=== PATIENT | male | born 1960 | race Caucasian/White ===

== ENCOUNTER → 2022-06-14 | Outpatient (CLI) | payer MEDICARE ==
--- NOTE | 2022-06-14 17:49 | CT ---
EXAMINATION TYPE: CT angio chest DATE OF EXAM: 06/14/2022 COMPARISON: 08/09/2014 HISTORY: 62-year-old male I 7 1.9, Thoracic aortic aneurysm. TECHNIQUE: Contiguous axial scanning of the chest performed without and with IV Contrast, patient inj ected with 100ml mL of Isovue 370. Coronal/sagittal MIP reconstructions performed. 3-D reconstruction s generated on a dedicated independent workstation. CT DLP: 339.3 mGycm Automated exposure control for dose reduction was used. FINDINGS: Heart normal size without pericardial effusion. Median sternotomy wires and prosthetic aortic valve a long with postoperative changes. Aortic root aneurysmal 4.5 cm versus 4.1 cm prior to valve replacement. There appears to be surgical material, possible annuloplasty just above the level of the aortic valve . Ascending aorta aneurysmal at 4.3 cm versus 4.2 cm, previously. Mild atherosclerotic arch calcifications with conventional arch vessel branching anatomy. Stable ectasia upper descending thoracic aorta 3.2 cm. Stable mild aneurysm distal descending thoracic aorta at 3.0 cm. Initial noncontrast images show no evidence for acute intramural hematoma. Borderline caliber to the main right and left pulmonary arteries measuring up to 2.6 cm suggesting un derlying pulmonary hypertension. Mildly enlarged 1.5 cm right hilar lymph node. Enlarged 1.3 cm precarinal lymph node. These are new from prior exam. Moderate emphysematous change, more advanced in the upper lungs. Biapical pleural parenchymal scarrin g is present. Mild diffuse bronchial wall thickening. Strandy scarring or atelectasis has developed a t the left lower lobe. Left posterior and lateral rib fracture deformities appear healed and are also new from 2015. No consolidation or pleural effusion. Visualized upper abdomen on lung windows showed no gross adenopathy. Bones: Extensive DISH within the mid and lower thoracic spine. Unchanged bone island within the L1 ve rtebral body. IMPRESSION: 1. COMPARED TO 2014, THERE HAS BEEN INTERVAL AORTIC VALVE REPLACEMENT AND ADDITIONAL SURGERY, POSS IBLE ANNULOPLASTY CHANGE JUST ABOVE THIS LEVEL. 2. AORTIC ROOT ANEURYSMAL AT 4.5 CM VERSUS 4.1 CM PREVIOUSLY. RELATIVELY SIMILAR ASCENDING AORTIC ANE URYSM AT 4.3 CM VERSUS 4.2 CM, PREVIOUSLY. 3. STABLE MILD DIFFUSE ANEURYSM OF THE DESCENDING THORACIC AORTA, DISTALLY MEASURING UP TO 3.0 CM. 4. COPD WITH MODERATE TO ADVANCED EMPHYSEMA AND POSSIBLE UNDERLYING PULMONARY ARTERIAL HYPERTENSION. 5. MILDLY ENLARGED 1.5 CM RIGHT HILAR LYMPH NODE AND 1.3 CM PRECARINAL LYMPH NODE, NEW FROM 2015. THE SE MAY BE REACTIVE/POST INFLAMMATORY. THREE-MONTH FOLLOW-UP CT TO ENSURE STABILITY AND EXCLUDE A NEOP LASTIC ETIOLOGY. 6. INTERVAL DEVELOPMENT OF SCARRING IN THE LEFT LOWER LOBE ALONG WITH HEALED POSTERIOR AND LATERAL LE FT RIB FRACTURE DEFORMITIES. 7. EXTENSIVE DISH MID AND LOWER THORACIC SPINE.
== END | disposition home or self-care (01) ==
LOC: RADCTMAIN 14:24
PROVIDERS: ATTEND Family Medicine
DX: I71.23 Aneurysm of the descending thoracic aorta, without rupture (principal); J43.9 Emphysema, unspecified; M48.14 Ankylosing hyperostosis [Forestier], thoracic region; R59.0 Localized enlarged lymph nodes; Z95.2 Presence of prosthetic heart valve
CPT/HCPCS: 71275; Q9967

== ENCOUNTER → 2022-10-03 | Outpatient (CLI) | payer MEDICARE ==
--- NOTE | 2022-10-03 09:21 | CT ---
EXAMINATION TYPE: CT chest w con DATE OF EXAM: 10/03/2022 COMPARISON: 06/14/2022 HISTORY: Thoracic aortic aneurysm. CT DLP: 330 mGycm, Automated exposure control for dose reduction was used. CONTRAST: Performed injected with 100ml mL of Isovue 300. TECHNIQUE: Axial images were obtained at 5 mm thick sections. Reconstructed images are reviewed on [employer] computer in the coronal plane. FINDINGS: There is subtle hypodensity within the mid right lobe thyroid. Consider ultrasound for rowena tional evaluation. Scarring at the bilateral lung apices appears stable. Emphysematous changes are evident. No suspiciou s infiltrates or masses identified. Minimal pleural thickening along the left posterior lateral pleur al margin. Old rib deformities are evident on the left. There is a 1.5 cm pretracheal lymph node. Stable from comparison. The ascending aorta diameter at the level of the main pulmonary artery is 4.3 cm. Previous measuremen t 4.3 cm. The main pulmonary artery diameter at the bifurcation is 2.1 cm. Aorta at the level of the diaphragm measures 2.6 cm. Transverse aortic arch dimension is 2.6 cm. Aorta at the aortic root is 3. 3 cm. Previous reported measurement 4.[address] sections are obtained through the upper abdomen. Abdomen is essentially unremarkable. IMPRESSIONS: 1. Stable aneurysmal dilatation of the ascending thoracic aorta of 4.3 cm. 2. There may be a subtle hypodensity within the right lobe thyroid. Consider ultrasound for additiona l evaluation. 3. Stable enlarged 1.5 cm pretracheal lymph node. 4. Centimeters changes
== END | disposition home or self-care (01) ==
LOC: RADCTMAIN 07:46
PROVIDERS: ATTEND Family Medicine
DX: I71.21 Aneurysm of the ascending aorta, without rupture (principal); R59.0 Localized enlarged lymph nodes
CPT/HCPCS: 71260; Q9967

== ENCOUNTER → 2022-10-10 | Outpatient (CLI) | payer MEDICARE ==
--- NOTE | 2022-10-10 18:07 | US ---
EXAMINATION TYPE: US thyroid st tissue head/neck DATE OF EXAM: 10/10/2022 COMPARISON: CT Chest 2022 CLINICAL INDICATION: Male, 62 years old with history of E079 THYROID NODULE; Thyroid nodule. GLAND SIZE: Right Lobe: 4.9 x 2.2 x 1.5 cm Overall Parenchyma: heterogenous Left Lobe: 4.2 x 1.3 x 1.6 cm Overall Parenchyma: heterogeneous Isthmus Thickness: 0.22 cm NODULES RIGHT: # of nodules measured on right: 1 1. 1.4 X 0.9 x 1.0 cm, mid mid, solid or almost completely solid, mixed echogenicity TR 4 nodule, w hich is taller than wide, with lobulated or irregular margins, without echogenic foci. Prior size: Hypodensity was seen on CT Chest. No prior ultrasound. LEFT: # of nodules measured on left: 0 ISTHMUS: # of nodules measured in the isthmus: 0 Bilateral neck scanned, borderline to mildly thickened lymph node along the left lateral neck measuri ng 1.6 x 1.1 x 0.9 cm, cortex measures 3.7 mm. IMPRESSION: 1. Solitary 1.4 cm TR 4 nodule in the right lobe. Follow-up can be performed. 2. Incidental borderline enlarged and mildly thickened lymph node along the left lateral neck measuri ng up to 1.1 cm short axis. Correlate for any palpable abnormality that can be followed clinically. C ontrast enhanced CT neck if any suspicious clinical features.
== END | disposition home or self-care (01) ==
LOC: RADUSWWP 12:29
PROVIDERS: ATTEND Family Medicine
DX: E04.1 Nontoxic single thyroid nodule (principal); E07.9 Disorder of thyroid, unspecified
CPT/HCPCS: 76536

== ENCOUNTER 2023-01-14 11:47 | Day surgery (SDC) | payer MEDICARE, BC ==
[2023-01-14 12:40] VITALS: BP 127/73; PULSE 56; RESP 16; TEMP 97.7
--- NOTE | 2023-01-14 13:39 | US ---
ULTRASOUND GUIDED FNA THYROID BIOPSY: CLINICAL HISTORY: Right thyroid nodule FINDINGS: marketing technologist scanned the patient prior to procedure and could not replicate the right thyr oid nodule. Linear areas of decreased echogenicity appear to correspond to vascular structures in the area of hyperemia. Patient was offered a random biopsy of the area of vague echogenicity. Patient wished to defer the pr ocedure. IMPRESSION: 1. Discrete nodule could not be replicated on today's exam. The Patient wishes to defer the procedure . Would recommend 3-6 month follow-up ultrasound to confirm stability.
== END 2023-01-14 13:25 | disposition home or self-care (01) ==
LOC: RADPROMAIN 11:47
PROVIDERS: ATTEND Internal Medicine Endocrinology, Diabetes & Metabolism
DX: Z53.8 Procedure and treatment not carried out for other reasons (principal); E04.1 Nontoxic single thyroid nodule
CPT/HCPCS: 76536

== ENCOUNTER → 2023-12-30 | Outpatient (CLI) | payer MEDICARE, BC ==
--- NOTE | 2023-12-30 20:09 | MR ---
EXAMINATION TYPE: MR lumbar spine wo con DATE OF EXAM: 12/30/2023 6:53 PM CLINICAL INDICATION:Male, 63 years old with history of M54.50 LOW BACK PAIN, UNSPECIFIED; PHH, Low ba ck pain, left foot numbness COMPARISON: None TECHNIQUE: Multi planar, multi sequence imaging was performed utilizing: T1-weighted, T2-weighted, a nd turbo inversion recovery imaging of the lumbar spine. IV Contrast: cc . (None if empty) FINDINGS: Alignment: The lumbar vertebral bodies have preserved heights with grade 1 anterolisthesis of L4 on L 5. Cord: The conus medullaris and the distal spinal cord appear unremarkable with regards to their signa l intensity and morphology. Bones/Discs: Multilevel disc degeneration changes with osteophyte formation, disc space narrowing, an d facet joint arthropathy. Intervertebral disc signal is maintained. No abnormal inversion recovery signal to suggest bony edema. T12-L1: No evidence of significant spinal canal stenosis or neural foraminal stenosis. L1-L2: No disc pathology. Facet joint arthropathy without significant spinal canal stenosis and mild bilateral neural foraminal stenosis. L2-L3: Disc bulge and facet joint arthropathy result in mild spinal canal and moderate and moderate t o severe left neural foraminal stenosis. L3-L4: Disc bulge and facet joint arthropathy result in mild spinal canal and moderate bilateral neur al foraminal stenosis. L4-L5: Disc uncovering from grade 1 anterolisthesis and facet joint arthropathy with mild spinal silviano l stenosis and severe right and moderate to severe left neural foraminal stenosis. L5-S1: The disc has a rounded posterior morphology without significant spinal canal stenosis. Facet j oint arthropathy with moderate bilateral neural foraminal stenosis. No significant spinal canal or neural foraminal stenosis in the remainder of the visualized levels. Other findings: None. IMPRESSION: 1. No definitive evidence of disc herniation or significant spinal canal stenosis. 2. Multilevel disc degeneration with associated osteoarthritic changes. No foraminal stenosis at L4- L5 with severe right and moderate to severe left L2-L3 and moderate severe left L4-L5. 3. Grade 1 anterolisthesis of L4 and L5.
== END | disposition home or self-care (01) ==
LOC: RADMRIMAIN 18:13
PROVIDERS: ATTEND Family Medicine
DX: M43.16 Spondylolisthesis, lumbar region (principal); M51.36 Other intervertebral disc degeneration, lumbar region; R20.0 Anesthesia of skin
CPT/HCPCS: 72148

== ENCOUNTER 2024-03-30 14:18 | Inpatient (IN) | payer MEDICARE, BC ==
[2024-03-30] MEDS ORDERED: VANCOMYCIN IV PER PHARMACY 1 EACH MISC MISCELLANE PRN (15:40)
[2024-03-30] MEDS: SODIUM CHLORIDE 0.9% 500 ML 500 ML IV SCH (16:05)
--- NOTE | 2024-03-30 16:05 | ED ---
General Adult HPI - General Chief complaint: Extremity Problem,Nontraumatic Stated complaint: L leg swelling Time Seen by Provider: 03/30/24 15:30 Source: patient, RN notes reviewed, old records reviewed Mode of arrival: ambulatory Limitations: no limitations - History of Present Illness Initial comments: This is a 64-year-old male who presents to the emergency department stating he had an infected left leg for about 2 weeks. Patient states he went to [facility] and he was admitted for 1 week and sent home on antibiotics for a week. Patient states the area is getting more red more swollen and more tender. Patient was on clindamycin and doxycycline. Patient denies fever or chills. Patient states the redness is expanding and the area is becoming more swollen. Patient denies any other symptoms at this time. - Related Data Home Medications Medication Instructions Recorded Confirmed Citalopram Hydrobromide [CeleXA] 20 mg PO DAILY 11/01/13 01/14/23 Lisinopril-Hctz 20-25 mg 1 tab PO DAILY 11/01/13 01/14/23 [Zestoretic 20-25] Aspirin EC [Ecotrin Low Dose] 81 mg PO DAILY 01/03/23 01/14/23 Buprenorphine HCl/Naloxone HCl 1 each SL BID 01/03/23 01/14/23 [Suboxone 4 mg-1 mg Sl Film] Diclofenac Sodium [Voltaren] 75 mg PO DAILY 01/03/23 01/14/23 Gabapentin 800 mg PO DAILY 01/03/23 01/14/23 Gabapentin [Neurontin] 400 mg PO DAILY 01/03/23 01/14/23 Metoprolol Tartrate [Lopressor] 50 mg PO BID 01/03/23 01/14/23 Rosuvastatin [Crestor] 20 mg PO DAILY 01/03/23 01/14/23 amLODIPine [Norvasc] 5 mg PO DAILY 01/03/23 01/14/23 buPROPion HCL [buPROPion HCL SR] 150 mg PO Q12HR 01/03/23 01/14/23 Allergies Allergy/AdvReac Type Severity Reaction Status Date / Time No Known Allergies Allergy Verified 03/30/24 14:26 Review of Systems ROS Statement: Those systems with pertinent positive or pertinent negative responses have been documented in the HPI. ROS Other: All systems not noted in ROS Statement are negative. Past Medical History Past Medical History: Hypertension Additional Past Medical History / Comment(s): GLASSES. ANDREAFSKI RT EAR. AORTIC ANEURYSM. HEART MURMUR SINCE . ARTHRITIS. BACK PAIN. RT ING. PAIN. History of Any Multi-Drug Resistant Organisms: None Reported Past Surgical History: Coronary Bypass/CABG, Hernia Repair, Orthopedic Surgery Additional Past Surgical History / Comment(s): LT ING. HERNIA REPAIR. 2010,2011,2013 HAD RT. ING HERNIA REPAIRS FROM A WORK RELATEED INJURY, PER PT AND/WORKMANS COMP. REP. ON INITIAL CONSULT FOR PAIN CLINIC 11/01/13. RT. SHOULDER ARTHRO. LT AND RT. KNEE ARTHRO. Past Psychological History: Depression Past Alcohol Use History: None Reported General Exam - General Exam Comments Initial Comments: GENERAL: Patient is well-developed and well-nourished. Patient is nontoxic and well- hydrated and is in mild distress. ENT: Neck is soft and supple. No significant lymphadenopathy is noted. Oropharynx is clear. Moist mucous membranes. Neck has full range of motion without eliciting any pain. EYES: The sclera were anicteric and conjunctiva were pink and moist. Extraocular movements were intact and pupils were equal round and reactive to light. E yelids were unremarkable. PULMONARY: Unlabored respirations. Good breath sounds bilaterally. No audible rales rhonchi or wheezing was noted. CARDIOVASCULAR: There is a regular rate and rhythm without any murmurs gallops or rubs. ABDOMEN: Soft and nontender with normal bowel sounds. SKIN: Skin is clear with no lesions or rashes and otherwise unremarkable. NEUROLOGIC: Patient is alert and oriented x3. Cranial nerves II through XII are grossly intact. Motor and sensory are also intact. Normal speech, volume and content. Symmetrical smile. MUSCULOSKELETAL: Normal extremities with adequate strength and full range of motion. Patient's left anterior rasheed is red warm and extremely tender there is an area of swollen this on the anterior surface. The erythema does reach around posteriorly as well. LYMPHATICS: No significant lymphadenopathy is noted PSYCHIATRIC: Normal psychiatric evaluation. Limitations: no limitations Course Vital Signs 03/30/24 03/30/24 03/30/24 14:22 15:25 16:41 Temperature 97.7 F Pulse Rate 67 67 62 Respiratory 20 16 16 Rate Blood Pressure 113/74 123/79 146/88 O2 Sat by Pulse 97 97 99 Oximetry Medical Decision Making - Medical Decision Making EKG is interpreted by myself read EKG shows a sinus rhythm at 63 bpm VA interval 197 QRS 152 QT interval is 470 QTc is 477. Patient's EKG shows no ST segment elevation Was pt. sent in by a medical professional or institution (CLIFTON Coker, PUBLIC SERVICES LIBRARIAN, urgent care, hospital, or penitentiary...) When possible be specific @ -No Did you speak to anyone other than the patient for history (EMS, parent, family, police, friend...)? What history was obtained from this source @ -No Did you review nursing and triage notes (agree or disagree)? Why? @ -I reviewed and agree with nursing and triage notes Were old charts reviewed (outside hosp., previous admission, EMS record, old EKG, old radiological studies, urgent care reports/EKG's, penitentiary records)? Report findings @ -No old charts were reviewed Differential Diagnosis? @ -Cellulitis, osteomyelitis, abscess, DVT, this is not an all-inclusive list EKG interpreted by me (3pts min.). @ -As above X-rays interpreted by me (1pt min.). @ -X-ray of the tib-fib shows no acute CT interpreted by me (1pt min.). @ -None done U/S interpreted by me (1pt. min.). @ -None done What testing was considered but not performed or refused? (CT, X-rays, U/S, labs)? Why? @ -None What meds were considered but not given or refused? Why? @ -None Did you discuss the management of the patient with other professionals (professionals i.e. CLIFTON Coker, PUBLIC SERVICES LIBRARIAN, lab, RT, psych nurse, social insurance adviser, package yarns drying machine operator, teacher, job placement officer, transplant case manager)? Give summary @ -I spoke with Dr. Arriola he agreed to admit the patient admit the patient f or the emergency Was smoking cessation discussed for >3mins.? @ -No Was critical care preformed (if so, how long)? @ -No Were there social determinants of health that impacted care today? How? (Homele ssness, low income, unemployed, alcoholism, drug addiction, transportation, low edu. Level, literacy, decrease access to med. care, correction, rehab)? @ -No Was there de-escalation of care discussed even if they declined (Discuss DNR or withdrawal of care, Hospice)? DNR status @ -No What co-morbidities impacted this encounter? (DM, HTN, Smoking, COPD, CAD, Cancer, CVA, ARF, Chemo, Hep., AIDS, mental health diagnosis, sleep apnea, morbid obesity)? @ -None Was patient admitted / discharged? Hospital course, mention meds given and route, prescriptions, significant lab abnormalities, going to OR and other pertinent info. @ -Patient was started on vancomycin and Unasyn. I spoke with Dr. Arriola he a greed to admit the patient admit the patient and I consulted infectious disease Undiagnosed new problem with uncertain prognosis? @ -No Drug Therapy requiring intensive monitoring for toxicity (Heparin, Nitro, Insulin, Cardizem)? @ -No Were any procedures done? @ -No Diagnosis/symptom? @ -Cellulitis left leg Acute, or Chronic, or Acute on Chronic? @ -Acute Uncomplicated (without systemic symptoms) or Complicated (systemic symptoms)? @ -Complicated Side effects of treatment? @ -No Exacerbation, Progression, or Severe Exacerbation? @ -No Poses a threat to life or bodily function? How? (Chest pain, [place], [place], pneumonia, PE, COPD, DKA, ARF, appy, cholecystitis, CVA, Diverticulitis, Homicidal, Barbara cidal, threat to staff... and all critical care pts) @ -Yes this could lead to sepsis and endorgan dysfunction - Lab Data Result diagrams: 03/30/24 15:45 03/30/24 15:45 Lab Results 03/30/24 03/30/24 03/30/24 Range/Units 15:45 15:45 15:45 WBC 8.0 (3.8-10.6) k/uL RBC 3.98 L (4.30-5.90) m/uL Hgb 12.0 L (13.0-17.5) gm/dL Hct 38.3 L (39.0-53.0) % MCV 96.4 (80.0-100.0) fL MCH 30.1 (25.0-35.0) pg MCHC 31.2 (31.0-37.0) g/dL RDW 13.5 (11.5-15.5) % Plt Count 417 (150-450) k/uL MPV 7.4 Neutrophils % 69 % Lymphocytes % 19 % Monocytes % 7 % Eosinophils % 1 % Basophils % 1 % Neutrophils # 5.5 (1.3-7.7) k/uL Lymphocytes # 1.5 (1.0-4.8) k/uL Monocytes # 0.6 (0-1.0) k/uL Eosinophils # 0.1 (0-0.7) k/uL Basophils # 0.1 (0-0.2) k/uL Hypochromasia Slight Sodium 138 (137-145) mmol/L Potassium 4.4 (3.5-5.1) mmol/L Chloride 105 (98-107) mmol/L Carbon Dioxide 29 (22-30) mmol/L Anion Gap 4 mmol/L BUN 19 (9-20) mg/dL Creatinine 0.61 L (0.66-1.25) mg/dL Est GFR (CKD-EPI)AfAm >90 (>60 ml/min/1.73 sqM) Est GFR (CKD-EPI)NonAf >90 (>60 ml/min/1.73 sqM) Glucose 85 (74-99) mg/dL Plasma Lactic Acid Simeon 0.9 (0.7-2.0) mmol/L Calcium 8.8 (8.4-10.2) mg/dL Total Bilirubin 0.7 (0.2-1.3) mg/dL AST 40 (17-59) U/L ALT 28 (4-49) U/L Alkaline Phosphatase 72 (38-126) U/L Total Protein 6.8 (6.3-8.2) g/dL Albumin 3.6 (3.5-5.0) g/dL Disposition Clinical Impression: Left leg cellulitis Disposition: ADMITTED IP TO THIS HOSP Referrals: Leroy Barboza DO [Primary Care Provider] - 1-2 days Time of Disposition: 17:14
[2024-03-30] MEDS: AMPICILLIN-SULBACTAM 3 GM in SODIUM CHLORIDE 0.9% 100 ML IVPB STA (16:13)
[2024-03-30 16:15] LABS: ALT 28 U/L (4-49); AST 40 U/L (17-59); African American GFR (CKD) >90 (>60 ml/min/1.73 sqM); Albumin 3.6 g/dL (3.5-5.0); Alkaline Phosphatase 72 U/L (38-126); Anion Gap 4 mmol/L; Blood Urea Nitrogen 19 mg/dL (9-20); Calcium 8.8 mg/dL (8.4-10.2); Carbon Dioxide 29 mmol/L (22-30); Chloride 105 mmol/L (98-107); Glucose 85 mg/dL (74-99); Non-African American GFR(CKD) >90 (>60 ml/min/1.73 sqM); Potassium 4.4 mmol/L (3.5-5.1); Sodium 138 mmol/L (137-145); Total Bilirubin 0.7 mg/dL (0.2-1.3); Total Protein 6.8 g/dL (6.3-8.2)
[2024-03-30 16:18] LABS: Basophils # (A) 0.1 k/uL (0-0.2); Basophils % (A) 1 %; Eosinophils # (A) 0.1 k/uL (0-0.7); Eosinophils % (A) 1 %; HCT 38.3 % (39.0-53.0); Hypochromasia Slight; Lymphocytes # (A) 1.5 k/uL (1.0-4.8); Lymphocytes % (A) 19 %; MCH 30.1 pg (25.0-35.0); MCHC 31.2 g/dL (31.0-37.0); MCV 96.4 fL (80.0-100.0); Mean Platelet Volume 7.4; Monocytes # (A) 0.6 k/uL (0-1.0); Monocytes % (A) 7 %; Neutrophils # (A) 5.5 k/uL (1.3-7.7); Neutrophils % (A) 69 %; Platelet Count 417 k/uL (150-450); RBC 3.98 m/uL (4.30-5.90); RDW 13.5 % (11.5-15.5)
--- NOTE | 2024-03-30 16:34 | XR ---
EXAMINATION TYPE: XR tibia fibula LT DATE OF EXAM: 03/30/2024 4:26 PM CLINICAL INDICATION: Male, 64 years old with history of Cellulitis; COMPARISON: None TECHNIQUE: XR tibia fibula LT; examined in AP and lateral projections. FINDINGS: Soft tissue swelling without evidence of osseous erosion. No evidence of any acute osseous pathology, joint dislocation, or soft tissue swelling is noted. Surgical clips in the distal medial l eg. IMPRESSION: 1. No evidence of acute fracture. 2. Mild soft tissue edema throughout the leg without evidence of osseous erosion. [facility], , 03/30/2024 4:32 PM
[2024-03-30] MEDS: VANCOMYCIN 1,000 MG in SODIUM CHLORIDE 0.9% 250 ML IVPB ONE (18:18)
[2024-03-30] MEDS: AMPICILLIN-SULBACTAM 3 GM in SODIUM CHLORIDE 0.9% 100 ML IVPB SCH (23:10)
[2024-03-30] MEDS: GABAPENTIN 300 MG CAP PO SCH (23:17)
[2024-03-30] MEDS: lisinopriL 20 MG TAB PO SCH (23:17)
[2024-03-30] MEDS: NICOTINE 14MG/24HR PATCH TRANSDERM SCH (23:17)
[2024-03-30] MEDS: buPROPion SR 150 MG TABLET.ER PO SCH (23:20)
[2024-03-31] MEDS: NON FORMULARY DRUG PO SCH (01:09)
[2024-03-31] MEDS: NON FORMULARY DRUG (Buprenorphine Hcl/Naloxone Hcl [Suboxone 4 Mg-1 Mg Sl Film] 1 EACH Fil SUBLINGUAL SCH (01:17)
[2024-03-31 05:47] LABS: African American GFR (CKD) >90 (>60 ml/min/1.73 sqM); Non-African American GFR(CKD) >90 (>60 ml/min/1.73 sqM)
[2024-03-31] MEDS: VANCOMYCIN 1,000 MG in SODIUM CHLORIDE 0.9% 250 ML IVPB SCH (06:12)
[2024-03-31] MEDS: ETODOLAC 400 MG TAB PO SCH (08:57)
[2024-03-31] MEDS: ATORVASTATIN 80 MG TAB PO SCH (09:00)
[2024-03-31] MEDS: PANTOPRAZOLE 40 MG TABLET PO SCH (09:00)
[2024-03-31] MEDS: CITALOPRAM HYDROBROMIDE 20 MG TAB PO SCH (09:00)
[2024-03-31] MEDS: ASPIRIN 81 MG PO SCH (09:00)
[2024-03-31] MEDS: MULTIVITAMINS, THERA 1 EACH TAB PO SCH (09:00)
[2024-03-31 10:22] VITALS: BMI 16.0
--- NOTE | 2024-03-31 13:57 | CT ---
EXAMINATION TYPE: CT lower leg LT w con CT DLP: 1406.8 mGycm, Automated exposure control for dose reduction was used. DATE OF EXAM: 03/31/2024 1:50 PM COMPARISON: Left tibia/fibular radiograph 03/30/2024 CLINICAL INDICATION:Male, 64 years old with history of abscess; PHH, left lower leg cellulitis TECHNIQUE: Axial images were obtained of the left lower extremity after the uneventful administration of 100 cc of Isovue 300 intravenously. Additional coronal and sagittal reformatted images and soft t issue and bone window were obtained for review. 3-D reconstruction was created on a separate workstat ion. FINDINGS: There is no evidence of fracture, subluxation, or dislocation. No osseous erosion. Edema wi th organized thin-walled rim-enhancing fluid collection within the anterior rasheed soft tissues in the mid tibial region measuring 4.2 x 0.9 x 7.4 cm in TV, AP, CC dimensions (series 4, image 104 and seri es 9, image 12). This is superficial to the muscle. No joint effusion. No evidence of vascular occlus ion. Atherosclerotic calcification of the anterior tibial artery proximally. No soft tissue gas ident ified. Medial right distal tibial soft tissue small calcifications. IMPRESSION: 1. No acute fracture or dislocation. 2. Anterior mid rasheed 7.4 cm organized fluid collection concerning for abscess. No internal gas or valadez rrounding osseous erosion. [facility], , 03/31/2024 1:54 PM
--- NOTE | 2024-03-31 22:49 | HP ---
HISTORY AND PHYSICAL HISTORY OF PRESENT ILLNESS: A 64-year-old patient came in with infected leg for about 2 weeks duration. He was at [facility], was admitted for 1 week, sent home on antibiotics. He possibly had some trauma to this, though he is not sure. This is the 3rd time it has happened in the last 3 or 4 years. His leg is swollen and red. He is admitted for IV antibiotics. HOME MEDICATIONS: 1. Celexa 20 daily. 2. Lisinopril. 3. Zestoretic 20/25 daily. 4. Aspirin daily. 5. Suboxone daily. 6. Voltaren 75 daily. 7. Gabapentin daily. 8. Metoprolol 50 b.i.d. 9. Crestor 20 mg daily. 10.Norvasc 5 mg daily. 11.Wellbutrin 150 b.i.d. ALLERGIES: Negative. REVIEW OF SYSTEMS: A 14-point review of systems otherwise negative. PAST MEDICAL HISTORY: Hypertension, aortic aneurysm, heart murmur since , back pain, and right inguinal pain. PAST SURGICAL HISTORY: Hernia repair, bypass surgery, orthopedic surgeries. PHYSICAL EXAMINATION: GENERAL: He is thin, cachectic. LUNGS: Scattered wheeze x4. HEART: Pupils equal, round, reactive. CARDIOVASCULAR: Regular rate and rhythm. ABDOMEN: Soft, nontender. SKIN: Warm and dry. NEUROLOGIC: Cranial nerves are intact. PSYCH: Fair mood and affect. LABORATORY DATA: Hemoglobin is 12. ASSESSMENT: Left leg cellulitis, started on IV antibiotics. Prognosis guarded. Follow up in the next 24 to 48 hours. Infect[address] Disease involved. CT scan of the leg showed purulent abscess. Prognosis guarded. MMODL / IJN: [id number] /
[2024-04-01 08:40] LABS: Basophils # (A) 0.09 X 10*3/uL (0.00-0.10); Basophils % (A) 1.3 %; Eosinophils % (A) 2.8 %; HCT 33.4 % (39.6-50.0); HGB 10.9 g/dL (13.0-17.0); Lymphocytes # (A) 1.96 X 10*3/uL (0.90-5.00); Lymphocytes % (A) 27.3 %; MCH 31.1 pg (27.0-32.0); MCHC 32.6 g/dL (32.0-37.0); MCV 95.4 FL (80.0-97.0); Mean Platelet Volume 10.1 FL (9.5-12.2); Monocytes # (A) 0.79 X 10*3/uL (0.20-1.00); NRBC Per 100 WBC 0 X 10*3/uL (0.00-0.01); Neutrophils # (A) 4.11 X 10*3/uL (1.80-7.70); Neutrophils % (A) 57.2 %; Platelet Count 395 X 10*3/uL (140-440); RDW 13.9 % (11.5-14.5); WBC 7.18 X 10*3/uL (4.50-10.00)
[2024-04-01 08:42] LABS: ALT 20 U/L (10-49); AST 24 U/L (14-35); Albumin 3.3 g/dL (3.8-4.9); Albumin/Globulin Ratio 1.27 Ratio (1.60-3.17); Alkaline Phosphatase 73 U/L (41-126); BUN/Creat Ratio 24.83 Ratio (12.00-20.00); Blood Urea Nitrogen 14.9 mg/dL (9.0-27.0); Calcium 8.8 mg/dL (8.7-10.3); Carbon Dioxide 28.3 mmol/L (21.6-31.8); Chloride 103 mmol/L (96-109); Globulin 2.6 g/dL (1.6-3.3); Glucose 89 mg/dL (70-110); Potassium 4.1 mmol/L (3.5-5.5); Sodium 141 mmol/L (135-145); Total Bilirubin 0.4 mg/dL (0.3-1.2); Total Protein 5.9 g/dL (6.2-8.2)
--- NOTE | 2024-04-01 08:57 | P.CONS ---
History of Present Illness - Reason for Consult Consult date: 03/31/24 Left leg cellulitis Requesting physician: Mau Lima - Chief Complaint Left leg pain and swelling x 2 weeks - History of Present Illness Patient is a 64-year-old male with a past medical history significant for hypertension aortic aneurysm hard of hearing patient presenting to the hospital for evaluation of left lower extremity pain swelling and redness that has been going on for 2 weeks patient mention has been evaluated and treated at the [facility] and was admitted for about a week to and sent home on some oral antibiotic however the patient noticed to have increasing swelling redness to the left lower extremity patient has been complaining of pain to the left leg especially when it is touched moderate intensity without any radiation with associated swelling redness but did not have any drainage patient did have some similar denies high-grade fever no fever has been recorded on presentation to hospital patient was not tachycardic hypotensive or hypoxic he did have white count of 8.0 creatinine has been normal electrolytes are normal patient was started on vancomycin and Weirtonsyn infectious disease was consulted for further management of antibiotic therapy patient did have x-ray of the tibia and fibula did not show any bony changes mild soft tissue edema throughout the leg Review of Systems Positive point and negatives has been mentioned in the HPI, complete review of systems was performed and all other systems are negative Past Medical History Past Medical History: Hypertension Additional Past Medical History / Comment(s): GLASSES. [place] RT EAR. AORTIC ANEURYSM. HEART MURMUR SINCE . ARTHRITIS. BACK PAIN. bilateral inguinal her yuliya with pain History of Any Multi-Drug Resistant Organisms: None Reported Past Surgical History: Coronary Bypass/CABG, Hernia Repair, Orthopedic Surgery Additional Past Surgical History / Comment(s): INFANT LT ING. HERNIA REPAIR. 2010,2011,2013 HAD RT. ING HERNIA REPAIRS FROM A WORK RELATED INJURY, PER PT AND/WORKMANS COMP. REP. ON INITIAL CONSULT FOR PAIN CLINIC 11/01/13. RT. SHOULDER ARTHRO. LT AND RT. KNEE ARTHRO. Past Psychological History: Depression Smoking Status: Current every day smoker, Light tobacco smoker Past Alcohol Use History: None Reported, Abuse Additional Past Alcohol Use History / Comment(s): Stopped drinking 30 years ago Past Drug Use History: Opiates Additional Drug Use History / Comment(s): PT REPORTS PAST SUBSTANCE ABUSE, MULT MEDS. Medications and Allergies Home Medications Medication Instructions Recorded Confirmed Type Aspirin EC [Ecotrin Low Dose] 81 mg PO DAILY 01/03/23 03/30/24 History Buprenorphine HCl/Naloxone HCl 0.5 film SUBLINGUAL BID 01/03/23 03/30/24 History [Suboxone 4 mg-1 mg Sl Film] Diclofenac Sodium [Voltaren] 75 mg PO BID 01/03/23 03/30/24 History buPROPion HCL [buPROPion HCL SR] 150 mg PO BID 01/03/23 03/30/24 History Citalopram Hydrobromide [CeleXA] 40 mg PO DAILY 03/30/24 03/30/24 History Gabapentin [Neurontin] 300 mg PO TID 03/30/24 03/30/24 History Multivitamin 50+ 1 tab PO DAILY 03/30/24 03/30/24 History Omeprazole [PriLOSEC] 20 mg PO DAILY 03/30/24 03/30/24 History Rosuvastatin Calcium [Crestor] 40 mg PO DAILY 03/30/24 03/30/24 History clindamycin HCL 300 mg PO TID 03/30/24 03/30/24 History lisinopriL [Prinivil] 20 mg PO DAILY 03/30/24 03/30/24 History Allergies Allergy/AdvReac Type Severity Reaction Status Date / Time No Known Allergies Allergy Verified 03/30/24 17:19 Physical Exam Vitals: Vital Signs Temp Pulse Pulse Resp BP BP Pulse Ox 03/31/24 07:11 98.2 F 64 16 159/85 98 03/31/24 01:58 98.4 F 65 16 151/89 95 03/30/24 21:30 65 16 03/30/24 20:25 98.3 F 64 16 180/92 96 03/30/24 20:00 65 17 165/98 96 03/30/24 16:41 62 16 146/88 99 03/30/24 15:25 67 16 123/79 97 03/30/24 14:22 97.7 F 67 20 113/74 97 Intake and Output 03/30/24 03/31/24 03/31/24 22:59 06:59 14:59 Other: Voiding Method Toilet Urinal # Voids 3 Weight 53.524 kg 53.524 kg GENERAL DESCRIPTION: Elderly male lying in bed, no distress. No tachypnea or accessory muscle of respiration use. HEENT: Shows Pallor , no scleral icterus. Oral mucous membrane is dry. No pharyngeal erythema or thrush NECK: Trachea central, no thyromegaly. LUNGS: Unlabored breathing. Clear to auscultation anteriorly. No wheeze or crackle. HEART: S1, S2, regular rate and rhythm. No loud murmur ABDOMEN: Soft, no tenderness , guarding or rigidity, no organomegaly EXTREMITIES: Left leg did have 2 areas of diffuse swelling with some fluctuation especially to the proximal area which is warm and red and tender to touch SKIN: No rash, no masses palpable. NEUROLOGICAL: The patient is awake, alert, oriented x3, mood and affect normal. Results CBC & Chem 7: 04/01/24 05:48 04/01/24 05:48 Labs: Abnormal Lab Results - Last 24 Hours (Table) 03/30/24 03/30/24 03/31/24 Range/Units 15:45 15:45 04:47 RBC 3.98 L (4.30-5.90) m/uL Hgb 12.0 L (13.0-17.5) gm/dL Hct 38.3 L (39.0-53.0) % Creatinine 0.61 L 0.56 L (0.66-1.25) mg/dL Assessment and Plan (1) Abscess of left leg Current Visit: Yes Status: Acute Code(s): L02.416 - CUTANEOUS ABSCESS OF LEFT LOWER LIMB SNOMED Code(s): 579674561 (2) Failure of outpatient treatment Current Visit: Yes Status: Acute Code(s): Z78.9 - OTHER SPECIFIED HEALTH STATUS SNOMED Code(s): 847064762 (3) Left leg cellulitis Current Visit: Yes Status: Acute Code(s): L03.116 - CELLULITIS OF LEFT LOWER LIMB SNOMED Code(s): 56081233585908341 Plan: 1patient presented to hospital with left lower extremity pain swelling redness that has been going on for 2 weeks failing outpatient treatment he did have an area of fluctuation possibly concerning for an abscess and likely related to MRSA gram-negative infection less likely but not entirely excluded 2-await CT of the left leg that has been ordered by admitting team if evidence of fluid collection surgery should be consulted for drainage of the abscess and deep culture 3-vancomycin pharmacy to dose target trough of 15 while watching kidney func tion and Vanco trough closely We will follow on clinical condition and cultures to further adjust medication if needed Thank you for this consultation we will follow the patient along with you Dictation was produced using [employer] dictation software. please excuse any grammatical, word or spelling errors. Time with Patient: Greater than 30
--- NOTE | 2024-04-01 10:23 | P.GSCN ---
History of Present Illness Consult date: 04/01/24 Reason for Consult: Lower extremity abscess, I&D Requesting physician: Corby Gonzalez History of present illness: This a pleasant 64-year-old male patient with history of memory impairment, coronary artery disease status post aortic valve replacement, 2 coronary artery bypass graft, every day smoker, and hypertension who presented to the emergency department with concerns of left lower extremity redness and swelling. Apparently patient had been recently admitted to [facility] for about 1 weeks duration on antibiotics for left lower extremity infection. He was discharged on oral antibiotics. He followed up with his PCP who was concerned still for infection and came into the emergency department for further evaluation. He was seen by infectious disease's, started on IV antibiotics. No leukocytosis. He has been afebrile. He had a CT of the left lower extremity that reported anterior mid rasheed 7.4 cm organized fluid collection concerning for abscess. Vascular surgery was consulted for I&D with deep tissue cultures. Denies any shortness of breath, chest pain, abdominal pain, nausea or vomiting. No diarrhea, fevers chills or bodyaches. He does report left lower extremity pain, states that pain is worse today but he does report swelling and redness is much improved since his first hospitalization. He denies any known injury to the lower extremity. Review of Systems A 14 point review systems was completed all pertinent positives and negatives as stated in the HPI. Past Medical History Past Medical History: Hypertension Additional Past Medical History / Comment(s): GLASSES. [place] RT EAR. AORTIC ANEURYSM. HEART MURMUR SINCE . ARTHRITIS. BACK PAIN. bilateral inguinal hernia with pain History of Any Multi-Drug Resistant Organisms: None Reported Past Surgical History: Coronary Bypass/CABG, Hernia Repair, Orthopedic Surgery Additional Past Surgical History / Comment(s): INFANT LT ING. HERNIA REPAIR. 2010,2011,2013 HAD RT. ING HERNIA REPAIRS FROM A WORK RELATED INJURY, PER PT AND/WORKMANS COMP. REP. ON INITIAL CONSULT FOR PAIN CLINIC 11/01/13. RT. SHOULDER ARTHRO. LT AND RT. KNEE ARTHRO. Past Psychological History: Depression Smoking Status: Current every day smoker, Light tobacco smoker Past Alcohol Use History: None Reported, Abuse Additional Past Alcohol Use History / Comment(s): Stopped drinking 30 years ago Past Drug Use History: Opiates Additional Drug Use History / Comment(s): PT REPORTS PAST SUBSTANCE ABUSE, MULT MEDS. Medications and Allergies Home Medications Medication Instructions Recorded Confirmed Type Aspirin EC [Ecotrin Low Dose] 81 mg PO DAILY 01/03/23 03/30/24 History Buprenorphine HCl/Naloxone HCl 0.5 film SUBLINGUAL BID 01/03/23 03/30/24 History [Suboxone 4 mg-1 mg Sl Film] Diclofenac Sodium [Voltaren] 75 mg PO BID 01/03/23 03/30/24 History buPROPion HCL [buPROPion HCL SR] 150 mg PO BID 01/03/23 03/30/24 History Citalopram Hydrobromide [CeleXA] 40 mg PO DAILY 03/30/24 03/30/24 History Gabapentin [Neurontin] 300 mg PO TID 03/30/24 03/30/24 History Multivitamin 50+ 1 tab PO DAILY 03/30/24 03/30/24 History Omeprazole [PriLOSEC] 20 mg PO DAILY 03/30/24 03/30/24 History Rosuvastatin Calcium [Crestor] 40 mg PO DAILY 03/30/24 03/30/24 History clindamycin HCL 300 mg PO TID 03/30/24 03/30/24 History lisinopriL [Prinivil] 20 mg PO DAILY 03/30/24 03/30/24 History Allergies Allergy/AdvReac Type Severity Reaction Status Date / Time No Known Allergies Allergy Verified 03/30/24 17:19 Surgical - Exam Vital Signs Temp Pulse Resp BP Pulse Ox 97.7 F 67 20 113/74 97 03/30/24 14:22 03/30/24 14:22 03/30/24 14:22 03/30/24 14:22 03/30/24 14:22 General appearance: The patient is alert, oriented, appears in no acute distress. HET: Head is normocephalic and atraumatic. Pupils are equal and reactive. Neck: Supple. Heart: Regular. Lungs: Equal expansion, normal respiratory effort. Abdomen: Soft, nontender, nondistended. Extremities: palpable DP pulses bilaterally. Left lower extremity with erythema along rasheed with fluctuance along the lateral aspect as well as small area of fluctuance medial aspect above the ankle. Neurological: No focal deficits. Alert and oriented x 3. Results - Labs 04/01/24 05:48 04/01/24 05:48 Microbiology - Last 24 Hours (Table) 03/30/24 15:45 Blood Culture - Preliminary Blood - Imaging Comments: Left lower extremity CT scan with contrast reports no acute fracture or dislo cation. Anterior mid rasheed 7.4 cm organized fluid collection concerning for abscess. No internal gas or surrounding osseous erosion. Assessment and Plan Assessment: 1. Left lower extremity abscess 2. Cellulitis 3. History of coronary artery disease status post heart valve replacement and CABG 4. Nicotine dependence 5. Hypertension Plan: 1. Keep n.p.o. 2. Antibiotics per recommendations from infectious disease 3. Patient scheduled for left lower extremity incision and drainage with deep tissue cultures Thank you for this consultation, we will continue to follow. The impression and plan of care has been dictated as directed. I performed a history and examination of this patient, discussed the same with the dictator. I agree with the dictator's note ,documented as a scribe. Any additional findings or plans will be noted.
[2024-04-01] MEDS: IV FLUID CONTINUATION 1,000 ML IV ONE (13:11)
[2024-04-01] MEDS: ONDANSETRON 4 MG/2 ML VIAL IVP STA (13:23)
[2024-04-01] MEDS ORDERED: PHENYLEPHRINE 10 MG/ML VIAL ONE (14:01)
[2024-04-01] MEDS ORDERED: fentaNYL (PF) 50 MCG/ML 2 ML AMP ONE (14:01)
[2024-04-01] MEDS ORDERED: LIDOCAINE 1% INJ 10MG/ML (20 ML MDV) ONE (14:01)
[2024-04-01] MEDS ORDERED: PROPOFOL 10 MG/ML 20 ML VIAL IV ONE (14:01)
[2024-04-01] MEDS ORDERED: TRIMETHOBENZAMIDE 100 MG/ML 2 ML VIAL IM ONE (14:01)
[2024-04-01] MEDS ORDERED: LIDOCAINE 4% LTA KIT (4 ML) TOPICAL ONE (14:01)
--- NOTE | 2024-04-01 14:40 | P.OP ---
Date of Procedure: 04/01/24 Preoperative Diagnosis: Localized abscess/fluid collection left lower extremity anterior compartment. Postoperative Diagnosis: Same. Procedure(s) Performed: Incision and drainage of abscess/fluid collection left lower extremity anterior compartment to the muscular level. Anesthesia: BRITTAA Surgeon: Juan Combs Estimated Blood Loss (ml): 2 Pathology: other (Wound culture.) Condition: stable Disposition: no change Indications for Procedure: Patient is a 64-year-old male who had presented with pain and erythematous changes along the lateral aspect of the left lower extremity at the mid calf level. CT scan confirmed a fluid collection although no air was identified within this fluid collection. Because of the erythema, and associated discomfort and suspicion for abscess patient is now offered incision and drainage. The procedure, risk and benefits were discussed with the patient in great detail. All questions were answered patient's satisfaction. Description of Procedure: Patient was brought the op room placed in the supine position administered general endotracheal anesthesia administered by the department of anesthesiology. Patient's left lower extremity was sterilely prepped and draped in the usual manner. Patient's intravenous antibiotic regimen was continued. Over the area of fluctuance a skin incision was made and carried down through the subcutaneous tissues. Some fluid was expressed and this was cultured although no purulence per se was identified. The incision was deepened down through the fascia into the muscular layer. The muscle itself appeared unremarkable. The subcutaneous tissues were probed in a circumferential manner assuring that no fluid collection was left undrained. The wound was then packed with iodoform gauze and appropriate dressings were applied. Patient tolerated procedure well and was transferred to the recovery area in satisfactory and stable condition.
--- NOTE | 2024-04-01 16:09 | P.PN ---
Subjective Progress Note Date: 04/01/24 Principal diagnosis: Reason for follow-up is left lower extremity abscess and cellulitis Patient is a 64-year-old male with a past medical history significant for hypertension aortic aneurysm hard of hearing patient presenting to the hospital for evaluation of left lower extremity pain swelling and redness, patient diagnosed with cellulitis CT was suggestive of abscess. On today's evaluation that is 04/01/2024, Patient is afebrile this morning patient denies having any chest pain shortness of breath or cough, the patient is currently on room air, patient denies any abdominal pain no diarrhea no nausea no vomiting patient denies any worsening pain to the left lower extremity. Patient white count 7.18, creatinine 0.6 blood cultures are pending Objective - Vital Signs Vital signs: Vital Signs Temp 97.8 F 04/01/24 07:19 Pulse 58 L 04/01/24 07:19 Resp 17 04/01/24 07:19 BP 153/88 04/01/24 07:19 Pulse Ox 100 04/01/24 07:58 FiO2 Intake & Output 03/31/24 04/01/24 04/01/24 18:59 06:59 18:59 Intake Total 590 Balance 590 Weight 53.524 kg Intake: Oral 590 Other: Voiding Method Toilet Toilet Urinal Urinal # Voids 2 - Exam GENERAL DESCRIPTION: An elderly male lying in bed in no distress RESPIRATORY SYSTEM: Unlabored breathing , decreased breath sounds at bases HEART: S1 S2 regular rate and rhythm , ABDOMEN: Soft , no tenderness EXTREMITIES: Left lower extremity swelling and redness - Labs CBC & Chem 7: 04/01/24 05:48 04/01/24 05:48 Labs: Abnormal Lab Results - Last 24 Hours (Table) 04/01/24 04/01/24 Range/Units 05:48 05:48 RBC 3.50 L (4.40-5.60) X 10*6/uL Hgb 10.9 L (13.0-17.0) g/dL Hct 33.4 L (39.6-50.0) % BUN/Creatinine Ratio 24.83 H (12.00-20.00) Ratio Total Protein 5.9 L (6.2-8.2) g/dL Albumin 3.3 L (3.8-4.9) g/dL Albumin/Globulin Ratio 1.27 L (1.60-3.17) Ratio Microbiology - Last 24 Hours (Table) 03/30/24 15:45 Blood Culture - Preliminary Blood Assessment and Plan (1) Abscess of left leg Current Visit: Yes Status: Acute Code(s): L02.416 - CUTANEOUS ABSCESS OF LEFT LOWER LIMB SNOMED Code(s): 883972353 (2) Failure of outpatient treatment Current Visit: Yes Status: Acute Code(s): Z78.9 - OTHER SPECIFIED HEALTH STATUS SNOMED Code(s): 618335882 (3) Left leg cellulitis Current Visit: Yes Status: Acute Code(s): L03.116 - CELLULITIS OF LEFT LOWER LIMB SNOMED Code(s): 99984773998201307 Plan: 1patient presented to hospital with left lower extremity pain swelling redness that has been going on for 2 weeks failing outpatient treatment he did have an area of fluctuation possibly concerning for an abscess and likely related to MRSA gram-negative infection less likely but not entirely excluded 2-patient CT of the leg suggestive of fluid collection vascular surgery has been consulted for drainage of the abscess and deep culture 3-for now continue with the vancomycin pharmacy to dose target trough of 15 and Unasyn while waiting for the culture to finalize Dictation was produced using [employer] dictation software. please excuse any grammatical, word or spelling errors. Time with Patient: Less than 30
[2024-04-01] MEDS: VANCOMYCIN TROUGH DUE 1 EACH MISC MISCELLANE ONE (18:51)
[2024-04-01] MEDS: KETOROLAC 15 MG/ML 1 ML VIAL IVP PRN (19:39)
[2024-04-01] MEDS: HYDROmorphone 1 MG/ML 1 ML SYRINGE IVP PRN (21:19)
[2024-04-02] MEDS: GABAPENTIN 300 MG CAP PO SCH (00:10)
[2024-04-02] MEDS: VANCOMYCIN 1,000 MG in SODIUM CHLORIDE 0.9% 250 ML IVPB SCH (01:03)
--- NOTE | 2024-04-02 02:58 | PN ---
PROGRESS NOTE A 64-year-old white male who had his leg cut open for severe abscess cellulitis on his left lower leg. He is off his Suboxone. He is on Dilaudid. He is crying in pain. We are going to give him gabapentin. Put him on oxygen. Possibly morphine sulphate if Dilaudid does not work. on his lower extremities. CT done prior to surgery shows soft tissues in the mid tibia region 4 x 2 x 0.9 x 7.4. Fluid collection concerning for abscess. No internal gas. There was incision and drainage on both sides of the tibia. Continue with wound care, IV antibiotics, pain control. MMODL / IJN: [id number] /
[2024-04-02 05:57] LABS: African American GFR (CKD) >90 (>60 ml/min/1.73 sqM); Non-African American GFR(CKD) >90 (>60 ml/min/1.73 sqM)
--- NOTE | 2024-04-02 12:06 | P.PN ---
Subjective Progress Note Date: 04/02/24 Principal diagnosis: Left lower extremity infection Patient is seen and examined as a follow-up. Yesterday he underwent incision and drainage of the left lower extremity. No purulent drainage noted per op note. Cultures are currently pending. Patient states he had quite a bit of pain through the night. He was started on IV Dilaudid and Toradol. He has been afebrile. Currently on IV antibiotics Objective - Vital Signs Vital signs: Vital Signs Temp 97.4 F L 04/02/24 07:38 Pulse 65 04/02/24 07:38 Resp 17 04/02/24 07:38 BP 168/90 04/02/24 07:38 Pulse Ox 95 04/02/24 07:43 FiO2 Intake & Output 04/01/24 04/02/24 04/02/24 18:59 06:59 18:59 Intake Total 600 590 Output Total 2 1000 650 Balance 598 -410 -650 Intake: IV 600 Oral 590 Output: Urine 1000 650 Estimated Blood Loss 2 Other: Voiding Method Toilet Toilet Toilet Urinal Urinal Urinal - Exam General appearance: The patient is alert, oriented, appears in no acute distress. HET: Head is normocephalic and atraumatic. Neck: Supple. Abdomen: Soft, nondistended. Extremities: Left lower extremity with dressing clean dry and intact. Neurological: No focal deficits. - Labs CBC & Chem 7: 04/01/24 05:48 04/02/24 05:16 Labs: Abnormal Lab Results - Last 24 Hours (Table) 04/02/24 Range/Units 05:16 Creatinine 0.63 L (0.66-1.25) mg/dL Microbiology - Last 24 Hours (Table) 03/30/24 15:45 Blood Culture - Preliminary Blood Assessment and Plan Assessment: 1. Left lower extremity fluid collection status post incision and drainage 2. Cellulitis 3. History of coronary artery disease status post heart valve replacement and CABG 4. Nicotine dependence 5. Hypertension Plan: 1. Diet as tolerated 2. Antibiotics per recommendations from infectious disease 3. Daily dressing change with iodoform packing, 4 x 4 and wrapped with Kerlix 4. Consult to wound care, appreciate their recommendations. Patient will need outpatient follow-up with wound clinic 5. Consult to physical therapy Thank you for this consultation, no further vascular surgical intervention indicated. We will be on standby, further needed do not hesitate to call us back. The impression and plan of care has been dictated as directed. Dr. Ojeda I performed a history and examination of this patient, discussed the same with the dictator. I agree with the dictator's note ,documented as a scribe. Any additional findings or plans will be noted.
--- NOTE | 2024-04-02 19:33 | P.PN ---
Subjective This is a pleasant 64 years old male who presents with left leg cellulitis Left leg is in a dressing. Pain controlled Currently covered with IV vancomycin and Unasyn CAT scan of the lower extremity showing no fracture but there is some fluid collection on the anterior mid shift, he status post I&D on 04/01. Today is postop day #1 Wound culture still pending Other than that patient feels comfortable no other complaint and he was able to walk in the hallway to certain extent Objective - Vital Signs Vital signs: Vital Signs Temp 100.1 F H 04/02/24 13:28 Pulse 100 04/02/24 14:54 Resp 18 04/02/24 14:54 BP 131/86 04/02/24 13:28 Pulse Ox 95 04/02/24 12:38 FiO2 Intake & Output 04/01/24 04/02/24 04/02/24 18:59 06:59 18:59 Intake Total 600 590 Output Total 2 1000 650 Balance 598 -410 -650 Intake: IV 600 Oral 590 Output: Urine 1000 650 Estimated Blood Loss 2 Other: Voiding Method Toilet Toilet Toilet Urinal Urinal Urinal # Voids 2 # Bowel Movements 1 - Exam GENERAL: The patient is alert and oriented x3, not in any acute distress. Well developed, well nourished. HEENT: Pupils are round and equally reacting to light. EOMI. No scleral icterus. No conjunctival pallor. Normocephalic, atraumatic. No pharyngeal erythema. No thyromegaly. CARDIOVASCULAR: S1 and S2 present. No murmurs, rubs, or gallops. PULMONARY: Chest is clear to auscultation, no wheezing , no crackles. ABDOMEN: Soft, nontender, nondistended, normoactive bowel sounds. No palpable organomegaly. MUSCULOSKELETAL: No joint swelling or deformity. -EXTREMITIES: No cyanosis, clubbing, or pedal edema. Left leg cellulitis with dressing in place NEUROLOGICAL: Gross neurological examination did not reveal any focal deficits. Will SKIN: No rashes. no petechiae. - Labs CBC & Chem 7: 04/01/24 05:48 04/02/24 05:16 Labs: Abnormal Lab Results - Last 24 Hours (Table) 04/02/24 Range/Units 05:16 Creatinine 0.63 L (0.66-1.25) mg/dL Microbiology - Last 24 Hours (Table) 04/01/24 14:35 Wound Culture - Preliminary Leg - Left 03/30/24 15:45 Blood Culture - Preliminary Blood Assessment and Plan Assessment: Acute left leg cellulitis associated with abscess in the left anterior rashede status post I&D on 04/01 Coronary artery disease with history of CABG Nicotine dependence Depression Plan: Continue with antibiotic as per ID team, currently on Unasyn and IV vancomycin Follow-up wound culture Vascular surgery team on the case DVT prophylaxis and GI prophylaxis Prognosis is fair
[2024-04-03 08:10] LABS: African American GFR (CKD) >90 (>60 ml/min/1.73 sqM); Non-African American GFR(CKD) >90 (>60 ml/min/1.73 sqM)
--- NOTE | 2024-04-03 11:36 | P.PN ---
Subjective Progress Note Date: 04/03/24 Patient is surgically stable. Objective - Vital Signs Vital signs: Vital Signs Temp 98.4 F 04/03/24 07:36 Pulse 67 04/03/24 08:40 Resp 16 04/03/24 08:40 BP 181/98 04/03/24 07:36 Pulse Ox 99 04/03/24 07:36 FiO2 Intake & Output 04/02/24 04/03/24 04/03/24 18:59 06:59 18:59 Intake Total 1260 Output Total 650 2225 Balance -650 -965 Intake: Oral 1260 Output: Urine 650 2225 Other: Voiding Method Toilet Toilet Toilet Urinal Urinal Urinal # Voids 2 # Bowel Movements 3 - Labs CBC & Chem 7: 04/01/24 05:48 04/03/24 07:11 Labs: Abnormal Lab Results - Last 24 Hours (Table) 04/03/24 Range/Units 07:11 Creatinine 0.48 L (0.66-1.25) mg/dL Microbiology - Last 24 Hours (Table) 04/01/24 14:35 Gram Stain - Preliminary Leg - Left Wound Culture - Preliminary 03/30/24 15:45 Blood Culture - Preliminary Blood Assessment and Plan Assessment: Right lower extremity ischemia with need for surgical revascularization. Plan: Discussed with the patient need to obtain CryoVein and need for formal surgical bypass. Timing is at issue however this will be performed sometime this week. All questions were answered patient's satisfaction. Time with Patient: Less than 30
[2024-04-03] MEDS: VANCOMYCIN TROUGH DUE 1 EACH MISC MISCELLANE ONE (11:53)
--- NOTE | 2024-04-03 15:58 | P.PN ---
Subjective This is a pleasant 64 years old male who presents with left leg cellulitis Left leg is in a dressing. Pain controlled Currently covered with IV vancomycin and Unasyn CAT scan of the lower extremity showing no fracture but there is some fluid collection on the anterior mid shift, he status post I&D on 04/01. Today is postop day #1 Wound culture still pending Other than that patient feels comfortable no other complaint and he was able to walk in the hallway to certain extent 04/03 No new complaints Wound is healing. Dressing in place Objective - Vital Signs Vital signs: Vital Signs Temp 98.5 F 04/03/24 12:07 Pulse 79 04/03/24 12:07 Resp 16 04/03/24 12:07 BP 141/86 04/03/24 12:07 Pulse Ox 99 04/03/24 12:07 FiO2 Intake & Output 04/02/24 04/03/24 04/03/24 18:59 06:59 18:59 Intake Total 1260 Output Total 650 2225 350 Balance -650 -965 -350 Intake: Oral 1260 Output: Urine 650 2225 350 Other: Voiding Method Toilet Toilet Toilet Urinal Urinal Urinal # Voids 2 # Bowel Movements 3 - Exam GENERAL: The patient is alert and oriented x3, not in any acute distress. Well developed, well nourished. HEENT: Pupils are round and equally reacting to light. EOMI. No scleral icterus. No conjunctival pallor. Normocephalic, atraumatic. No pharyngeal erythema. No thyromegaly. CARDIOVASCULAR: S1 and S2 present. No murmurs, rubs, or gallops. PULMONARY: Chest is clear to auscultation, no wheezing , no crackles. ABDOMEN: Soft, nontender, nondistended, normoactive bowel sounds. No palpable organomegaly. MUSCULOSKELETAL: No joint swelling or deformity. -EXTREMITIES: No cyanosis, clubbing, or pedal edema. Left leg cellulitis with dressing in place NEUROLOGICAL: Gross neurological examination did not reveal any focal deficits. Will SKIN: No rashes. no petechiae. - Labs CBC & Chem 7: 04/01/24 05:48 04/03/24 07:11 Labs: Abnormal Lab Results - Last 24 Hours (Table) 04/03/24 Range/Units 07:11 Creatinine 0.48 L (0.66-1.25) mg/dL Microbiology - Last 24 Hours (Table) 04/01/24 14:35 Gram Stain - Preliminary Leg - Left Wound Culture - Preliminary 03/30/24 15:45 Blood Culture - Preliminary Blood Assessment and Plan Assessment: Acute left leg cellulitis associated with abscess in the left anterior rasheed status post I&D on 04/01 Coronary artery disease with history of CABG Nicotine dependence Depression Plan: Continue with antibiotic as per ID team, currently on Unasyn and IV vancomycin Follow-up wound culture Vascular surgery team on the case DVT prophylaxis and GI prophylaxis Prognosis is fair
--- NOTE | 2024-04-03 23:07 | P.PN ---
Subjective Progress Note Date: 04/02/24 Principal diagnosis: Reason for follow-up is left lower extremity abscess and cellulitis Patient is a 64-year-old male with a past medical history significant for hypertension aortic aneurysm hard of hearing patient presenting to the hospital for evaluation of left lower extremity pain swelling and redness, patient diagnosed with cellulitis CT was suggestive of abscess. On today's evaluation that is 04/02/2024,the patient denies any fever or any chills, patient is breathing comfortably on room air, the patient denies chest pain shortness of breath and no significant cough, patient denies abdominal pain, no nausea vomiting or diarrhea. Patient pain to the left lower extremity is currently controlled/decrease in intensity no CBC was done cultures are currently pending Objective - Vital Signs Vital signs: Vital Signs Temp 100.1 F H 04/02/24 13:28 Pulse 100 04/02/24 14:54 Resp 18 04/02/24 14:54 BP 131/86 04/02/24 13:28 Pulse Ox 95 04/02/24 12:38 FiO2 Intake & Output 04/01/24 04/02/24 04/02/24 18:59 06:59 18:59 Intake Total 600 590 Output Total 2 1000 650 Balance 598 -410 -650 Intake: IV 600 Oral 590 Output: Urine 1000 650 Estimated Blood Loss 2 Other: Voiding Method Toilet Toilet Toilet Urinal Urinal Urinal - Exam GENERAL DESCRIPTION: An elderly male lying in bed in no distress RESPIRATORY SYSTEM: Unlabored breathing , decreased breath sounds at bases HEART: S1 S2 regular rate and rhythm , ABDOMEN: Soft , no tenderness EXTREMITIES: Left lower extremity currently dressed no drainage on the dressing or - Labs CBC & Chem 7: 04/01/24 05:48 04/03/24 07:11 Labs: Abnormal Lab Results - Last 24 Hours (Table) 04/02/24 Range/Units 05:16 Creatinine 0.63 L (0.66-1.25) mg/dL Microbiology - Last 24 Hours (Table) 03/30/24 15:45 Blood Culture - Preliminary Blood Assessment and Plan (1) Abscess of left leg Current Visit: Yes Status: Acute Code(s): L02.416 - CUTANEOUS ABSCESS OF LEFT LOWER LIMB SNOMED Code(s): 937434740 (2) Failure of outpatient treatment Current Visit: Yes Status: Acute Code(s): Z78.9 - OTHER SPECIFIED HEALTH STATUS SNOMED Code(s): 410889692 (3) Left leg cellulitis Current Visit: Yes Status: Acute Code(s): L03.116 - CELLULITIS OF LEFT LOWER LIMB SNOMED Code(s): 74937695571708859 Plan: 1patient presented to hospital with left lower extremity pain swelling redness that has been going on for 2 weeks failing outpatient treatment he did have an area of fluctuation possibly concerning for an abscess and likely related to MRSA gram-negative infection less likely but not entirely excluded 2-patient CT of the leg suggestive of fluid collection vascular surgery has been consulted and the patient is status post I&D however there is no significant purulence as reported by the surgeon culture have been obtained 3- patient to continue with the vancomycin pharmacy to dose target trough of 15 and Unasyn while waiting for the culture to finalize Dictation was produced using [employer] dictation software. please excuse any grammatical, word or spelling errors. Time with Patient: Less than 30
--- NOTE | 2024-04-03 23:08 | P.PN ---
Subjective Progress Note Date: 04/03/24 Principal diagnosis: Reason for follow-up is left lower extremity abscess and cellulitis Patient is a 64-year-old male with a past medical history significant for hypertension aortic aneurysm hard of hearing patient presenting to the hospital for evaluation of left lower extremity pain swelling and redness, patient diagnosed with cellulitis CT was suggestive of abscess. On today's evaluation that is 04/03/2024 the patient continues to be afebrile, the patient is breathing comfortably on room air patient denies having any chest pain or any cough, no nausea no vomiting abdominal pain or diarrhea pain to the left lower extremities currently controlled. Patient did have a creatinine 0.48 no CBC was done today cultures so far negative Objective - Vital Signs Vital signs: Vital Signs Temp 98.5 F 04/03/24 12:07 Pulse 79 04/03/24 12:07 Resp 16 04/03/24 12:07 BP 141/86 04/03/24 12:07 Pulse Ox 99 04/03/24 12:07 FiO2 Intake & Output 04/02/24 04/03/24 04/03/24 18:59 06:59 18:59 Intake Total 1260 Output Total 650 2225 Balance -650 -965 Intake: Oral 1260 Output: Urine 650 2225 Other: Voiding Method Toilet Toilet Toilet Urinal Urinal Urinal # Voids 2 # Bowel Movements 3 - Exam GENERAL DESCRIPTION: An elderly male lying in bed in no distress RESPIRATORY SYSTEM: Unlabored breathing , decreased breath sounds at bases HEART: S1 S2 regular rate and rhythm , ABDOMEN: Soft , no tenderness EXTREMITIES: Left lower extremity currently dressed no drainage on the dressing or - Labs CBC & Chem 7: 04/01/24 05:48 04/03/24 07:11 Labs: Abnormal Lab Results - Last 24 Hours (Table) 04/03/24 Range/Units 07:11 Creatinine 0.48 L (0.66-1.25) mg/dL Microbiology - Last 24 Hours (Table) 04/01/24 14:35 Gram Stain - Preliminary Leg - Left Wound Culture - Preliminary 03/30/24 15:45 Blood Culture - Preliminary Blood Assessment and Plan (1) Abscess of left leg Current Visit: Yes Status: Acute Code(s): L02.416 - CUTANEOUS ABSCESS OF LEFT LOWER LIMB SNOMED Code(s): 542639767 (2) Failure of outpatient treatment Current Visit: Yes Status: Acute Code(s): Z78.9 - OTHER SPECIFIED HEALTH STATUS SNOMED Code(s): 388470493 (3) Left leg cellulitis Current Visit: Yes Status: Acute Code(s): L03.116 - CELLULITIS OF LEFT LOWER LIMB SNOMED Code(s): 20803297350327759 Plan: 1patient presented to hospital with left lower extremity pain swelling redness that has been going on for 2 weeks failing outpatient treatment he did have an area of fluctuation possibly concerning for an abscess and likely related to MRSA gram-negative infection less likely but not entirely excluded 2-patient CT of the leg suggestive of fluid collection vascular surgery has been consulted and the patient is status post I&D however there is no significant purulence as reported by the surgeon culture have been obtained 3- patient culture has been negative we will discontinue vancomycin continue with Unasyn and a short course of oral Augmentin on discharge Dictation was produced using [employer] dictation software. please excuse any grammatical, word or spelling errors. Time with Patient: Less than 30
[2024-04-04] MEDS: amLODIPine 5 MG TAB PO SCH (08:46)
[2024-04-04 09:54] LABS: Basophils % (A) 1.2 %; Eosinophils % (A) 2.5 %; HCT 32.7 % (39.6-50.0); HGB 10.9 g/dL (13.0-17.0); Lymphocytes # (A) 2.13 X 10*3/uL (0.90-5.00); Lymphocytes % (A) 26.1 %; MCH 30.5 pg (27.0-32.0); MCHC 33.3 g/dL (32.0-37.0); MCV 91.6 FL (80.0-97.0); Mean Platelet Volume 9.9 FL (9.5-12.2); Monocytes % (A) 9.8 %; NRBC Per 100 WBC 0 X 10*3/uL (0.00-0.01); Neutrophils % (A) 60.2 %; Platelet Count 280 X 10*3/uL (140-440); RBC 3.57 X 10*6/uL (4.40-5.60); RDW 13.9 % (11.5-14.5); WBC 8.15 X 10*3/uL (4.50-10.00)
[2024-04-04 10:03] LABS: Blood Urea Nitrogen 9.1 mg/dL (9.0-27.0); Calcium 8.4 mg/dL (8.7-10.3); Carbon Dioxide 25.3 mmol/L (21.6-31.8); Chloride 105 mmol/L (96-109); Glucose 93 mg/dL (70-110); Potassium 3.5 mmol/L (3.5-5.5); Sodium 141 mmol/L (135-145)
--- NOTE | 2024-04-04 17:05 | P.PN ---
Subjective This is a pleasant 64 years old male who presents with left leg cellulitis Left leg is in a dressing. Pain controlled Currently covered with IV vancomycin and Unasyn CAT scan of the lower extremity showing no fracture but there is some fluid collection on the anterior mid shift, he status post I&D on 04/01. Today is postop day #1 Wound culture still pending Other than that patient feels comfortable no other complaint and he was able to walk in the hallway to certain extent 04/03 No new complaints Wound is healing. Dressing in place 04/04 Patient left leg cellulitis is improving, he suspected to leave tomorrow No other new complaints and he is relaxed and pleasant His blood pressure is high, Norvasc 5 mg added, we will check tomorrow if still high we will give him higher dose. Dr. Arriola will resume the care of the patient tomorrow Objective - Vital Signs Vital signs: Vital Signs Temp 97.9 F 04/04/24 12:25 Pulse 73 04/04/24 12:25 Resp 15 04/04/24 12:25 BP 170/95 04/04/24 12:25 Pulse Ox 99 04/04/24 12:25 FiO2 Intake & Output 04/03/24 04/04/24 04/04/24 18:59 06:59 18:59 Intake Total 1080 Output Total 750 900 Balance -750 180 Intake: Oral 1080 Output: Urine 750 900 Other: Voiding Method Toilet Toilet Toilet Urinal Urinal Urinal - Exam GENERAL: The patient is alert and oriented x3, not in any acute distress. Well developed, well nourished. HEENT: Pupils are round and equally reacting to light. EOMI. No scleral icterus. No conjunctival pallor. Normocephalic, atraumatic. No pharyngeal erythema. No thyromegaly. CARDIOVASCULAR: S1 and S2 present. No murmurs, rubs, or gallops. PULMONARY: Chest is clear to auscultation, no wheezing , no crackles. ABDOMEN: Soft, nontender, nondistended, normoactive bowel sounds. No palpable organomegaly. MUSCULOSKELETAL: No joint swelling or deformity. -EXTREMITIES: No cyanosis, clubbing, or pedal edema. Left leg cellulitis with dressing in place NEUROLOGICAL: Gross neurological examination did not reveal any focal deficits. Will SKIN: No rashes. no petechiae. - Labs CBC & Chem 7: 04/04/24 04:59 04/04/24 04:59 Labs: Abnormal Lab Results - Last 24 Hours (Table) 04/04/24 04/04/24 Range/Units 04:59 04:59 RBC 3.57 L (4.40-5.60) X 10*6/uL Hgb 10.9 L (13.0-17.0) g/dL Hct 32.7 L (39.6-50.0) % Creatinine 0.5 L (0.6-1.5) mg/dL Calcium 8.4 L (8.7-10.3) mg/dL C-Reactive Protein 1.30 H (0.00-0.80) mg/dL Microbiology - Last 24 Hours (Table) 04/01/24 14:35 Gram Stain - Final Leg - Left Wound Culture - Final Assessment and Plan Assessment: Acute left leg cellulitis associated with abscess in the left anterior rasheed status post I&D on 04/01 Coronary artery disease with history of CABG Nicotine dependence Depression Plan: Continue with antibiotic as per ID team, currently on Unasyn and IV vancomycin Follow-up wound culture Vascular surgery team on the case DVT prophylaxis and GI prophylaxis Prognosis is fair
[2024-04-04] MEDS: CHOLESTYRAMINE (WITH SUGAR) 4 GM PACKET PO SCH (18:19)
--- NOTE | 2024-04-04 22:23 | P.PN ---
Subjective Progress Note Date: 04/04/24 Principal diagnosis: Reason for follow-up is left lower extremity abscess and cellulitis Patient is a 64-year-old male with a past medical history significant for hypertension aortic aneurysm hard of hearing patient presenting to the hospital for evaluation of left lower extremity pain swelling and redness, patient diagnosed with cellulitis CT was suggestive of abscess. On today's evaluation that is 04/04/2024, the patient continues to be afebrile, the patient is on room air and breathing comfortably, the Pt denies having any chest pain or cough, the patient denies having any abdominal pain no vomiting patient complaining of diarrhea with multiple loose stools. The left lower extremity has decreased in intensity. Patient white count is 8.15, creatinine 0.5 culture remains to be negative Objective - Vital Signs Vital signs: Vital Signs Temp 97.9 F 04/04/24 12:25 Pulse 73 04/04/24 12:25 Resp 15 04/04/24 12:25 BP 170/95 04/04/24 12:25 Pulse Ox 99 04/04/24 12:25 FiO2 Intake & Output 04/03/24 04/04/24 04/04/24 18:59 06:59 18:59 Intake Total 1080 Output Total 750 900 Balance -750 180 Intake: Oral 1080 Output: Urine 750 900 Other: Voiding Method Toilet Toilet Toilet Urinal Urinal Urinal - Exam GENERAL DESCRIPTION: An elderly male lying in bed in no distress RESPIRATORY SYSTEM: Unlabored breathing , decreased breath sounds at bases HEART: S1 S2 regular rate and rhythm , ABDOMEN: Soft , no tenderness EXTREMITIES: Left lower extremity wound base with no significant slough tissue surrounding redness has decreased - Labs CBC & Chem 7: 04/04/24 04:59 04/04/24 04:59 Labs: Abnormal Lab Results - Last 24 Hours (Table) 04/04/24 04/04/24 Range/Units 04:59 04:59 RBC 3.57 L (4.40-5.60) X 10*6/uL Hgb 10.9 L (13.0-17.0) g/dL Hct 32.7 L (39.6-50.0) % Creatinine 0.5 L (0.6-1.5) mg/dL Calcium 8.4 L (8.7-10.3) mg/dL C-Reactive Protein 1.30 H (0.00-0.80) mg/dL Microbiology - Last 24 Hours (Table) 04/01/24 14:35 Gram Stain - Final Leg - Left Wound Culture - Final Assessment and Plan (1) Abscess of left leg Current Visit: Yes Status: Acute Code(s): L02.416 - CUTANEOUS ABSCESS OF LEFT LOWER LIMB SNOMED Code(s): 210716456 (2) Failure of outpatient treatment Current Visit: Yes Status: Acute Code(s): Z78.9 - OTHER SPECIFIED HEALTH STATUS SNOMED Code(s): 380175881 (3) Left leg cellulitis Current Visit: Yes Status: Acute Code(s): L03.116 - CELLULITIS OF LEFT LOWER LIMB SNOMED Code(s): 34009682998416502 (4) Diarrhea Current Visit: Yes Status: Acute Code(s): R19.7 - DIARRHEA, UNSPECIFIED SNOMED Code(s): 53058926 Plan: 1patient presented to hospital with left lower extremity pain swelling redness that has been going on for 2 weeks failing outpatient treatment he did have an area of fluctuation possibly concerning for an abscess and likely related to MRSA gram-negative infection less likely but not entirely excluded 2-patient CT of the leg suggestive of fluid collection vascular surgery has been consulted and the patient is status post I&D however there is no significant purulence as reported by the surgeon culture have been obtained which are negative so far 3-has developed significant diarrhea possible antibiotic associated C. difficile less likely but not excluded we will check a stool for C. difficile will add Questran for symptomatic relief and switch Unasyn to Rocephin plan is for oral Ceftin on discharge if the culture remains to be negative Dictation was produced using [employer] dictation software. please excuse any grammatical, word or spelling errors. Time with Patient: Less than 30
--- NOTE | 2024-04-05 12:18 | P.CONS ---
History of Present Illness - Reason for Consult Consult date: 04/05/24 wound care - History of Present Illness This is a 64-year-old patient known to the wound care center with a nonhealing ulceration to the left lateral leg. Patient underwent a I&D with Dr. Conley currently utilizing packing and irrigating the ulceration. Ulceration continues to have numerous blood clots present. Ulceration measures approximately 4 x 3 x 3 cm with granulation and blood clots. Patient's past medical history significant for Hypertension. Current every day smoker Review Of Systems: Constitutional: No fever, no chills, no night sweats. No weight change. No weakness, fatigue or lethargy. No daytime sleepiness. Integumentary:reports wounds, no lesions. No rash or pruritus. No unusual bruising. No change in hair or nails. Physical exam: General Appearance: Alert, cooperative, no distress, appears stated age. Skin: See HPI all other Skin color, texture, tugor normal, no rashes or lesions. Neurologic: Alert oriented x3 Assessment: 1. Nonhealing ulceration with fat layer exposure left lateral lower extremity Plan: 1. Apply negative pressure wound VAC at 125 mm of continuous pressure with black foam. Change Friday. Patient will be seen in the wound care center upon discharge. Thank you for the consultation any questions please contact the wound care center DNP note has been reviewed and discussed with Dr. Solorio and the impression and plan of care has been directed as dictated. Past Medical History Past Medical History: Hypertension Additional Past Medical History / Comment(s): GLASSES. MI'KMAQ RT EAR. AORTIC ANEURYSM. HEART MURMUR SINCE . ARTHRITIS. BACK PAIN. bilateral inguinal hernia with pain History of Any Multi-Drug Resistant Organisms: None Reported Past Surgical History: Coronary Bypass/CABG, Hernia Repair, Orthopedic Surgery Additional Past Surgical History / Comment(s): INFANT LT ING. HERNIA REPAIR. 2010,2011,2013 HAD RT. ING HERNIA REPAIRS FROM A WORK RELATED INJURY, PER PT AND/WORKMANS COMP. REP. ON INITIAL CONSULT FOR PAIN CLINIC 11/01/13. RT. SHOULDER ARTHRO. LT AND RT. KNEE ARTHRO. Past Psychological History: Depression Smoking Status: Current every day smoker, Light tobacco smoker Past Alcohol Use History: None Reported, Abuse Additional Past Alcohol Use History / Comment(s): Stopped drinking 30 years ago Past Drug Use History: Opiates Additional Drug Use History / Comment(s): PT REPORTS PAST SUBSTANCE ABUSE, MULT MEDS. Medications and Allergies Home Medications Medication Instructions Recorded Confirmed Type Aspirin EC [Ecotrin Low Dose] 81 mg PO DAILY 01/03/23 03/30/24 History Buprenorphine HCl/Naloxone HCl 0.5 film SUBLINGUAL BID 01/03/23 03/30/24 History [Suboxone 4 mg-1 mg Sl Film] Diclofenac Sodium [Voltaren] 75 mg PO BID 01/03/23 03/30/24 History buPROPion HCL [buPROPion HCL SR] 150 mg PO BID 01/03/23 03/30/24 History Citalopram Hydrobromide [CeleXA] 40 mg PO DAILY 03/30/24 03/30/24 History Gabapentin [Neurontin] 300 mg PO TID 03/30/24 03/30/24 History Multivitamin 50+ 1 tab PO DAILY 03/30/24 03/30/24 History Omeprazole [PriLOSEC] 20 mg PO DAILY 03/30/24 03/30/24 History Rosuvastatin Calcium [Crestor] 40 mg PO DAILY 03/30/24 03/30/24 History clindamycin HCL 300 mg PO TID 03/30/24 03/30/24 History lisinopriL [Prinivil] 20 mg PO DAILY 03/30/24 03/30/24 History Allergies Allergy/AdvReac Type Severity Reaction Status Date / Time No Known Allergies Allergy Verified 03/30/24 17:19 Physical Exam Vitals: Vital Signs Temp Pulse Resp BP Pulse Ox 04/05/24 08:00 98 F 60 16 162/84 98 04/05/24 02:00 98.2 F 66 14 153/85 97 04/04/24 19:57 97.5 F L 75 16 164/99 96 04/04/24 12:25 97.9 F 73 15 170/95 99 Intake and Output 04/04/24 04/05/24 04/05/24 22:59 06:59 14:59 Intake Total 360 1044 Output Total 600 Balance 360 444 Intake: Oral 360 1044 Output: Urine 600 Other: Voiding Method Urinal # Bowel Movements 1 Results CBC & Chem 7: 04/04/24 04:59 04/04/24 04:59 Labs: Microbiology - Last 24 Hours (Table) 10/15/24 15:45 Blood Culture - Final Blood Assessment and Plan (1) Non-pressure chronic ulcer of other part of left lower leg with fat layer exposed Current Visit: Yes Status: Acute Code(s): L97.822 - NON-PRS CHRONIC ULCER OTH PRT L LOW LEG W FAT LAYER EXPOSED SNOMED Code(s): 74238002361467193 (2) Abscess of left leg Current Visit: Yes Status: Acute Code(s): L02.416 - CUTANEOUS ABSCESS OF LEFT LOWER LIMB SNOMED Code(s): 126648562
--- NOTE | 2024-04-05 12:23 | P.PN ---
Subjective Progress Note Date: 04/05/24 Principal diagnosis: Left lower extremity infection Patient seen and examined today as a follow-up. He is status post I&D of left lower extremity fluid collection. States he still having quite a bit of pain in that area. Deep tissue cultures with no growth. Patient's been afebrile. Objective - Vital Signs Vital signs: Vital Signs Temp 98 F 04/05/24 08:00 Pulse 60 04/05/24 08:00 Resp 16 04/05/24 08:00 BP 162/84 04/05/24 08:00 Pulse Ox 98 04/05/24 08:00 FiO2 Intake & Output 04/04/24 04/05/24 04/05/24 18:59 06:59 18:59 Intake Total 360 1044 Output Total 600 Balance 360 444 Intake: Oral 360 1044 Output: Urine 600 Other: Voiding Method Toilet Urinal # Bowel Movements 1 - Exam General appearance: The patient is alert, oriented, appears in no acute distress. HET: Head is normocephalic and atraumatic. Neck: Supple. Abdomen: Soft, nondistended. Extremities: Left lower extremity surgical wound with multiple old clots, removed. Flushed with normal saline and repacked with iodoform, 4 x 4 and wrapped with Kerlix. Neurological: No focal deficits. - Labs CBC & Chem 7: 04/04/24 04:59 04/04/24 04:59 Labs: Abnormal Lab Results - Last 24 Hours (Table) 04/04/24 04/04/24 Range/Units 04:59 04:59 RBC 3.57 L (4.40-5.60) X 10*6/uL Hgb 10.9 L (13.0-17.0) g/dL Hct 32.7 L (39.6-50.0) % Creatinine 0.5 L (0.6-1.5) mg/dL Calcium 8.4 L (8.7-10.3) mg/dL C-Reactive Protein 1.30 H (0.00-0.80) mg/dL Microbiology - Last 24 Hours (Table) 03/30/24 15:45 Blood Culture - Final Blood Assessment and Plan Assessment: 1. Left lower extremity fluid collection status post incision and drainage 2. Cellulitis 3. History of coronary artery disease status post heart valve replacement and CABG 4. Nicotine dependence 5. Hypertension Plan: 1. Diet as tolerated 2. Consult to wound care for possible wound VAC, appreciate their recommendations. Patient will need outpatient follow-up with wound clinic 3. Pain medications/management per primary medical team and patient's pain specialist Thank you for this consultation, no further vascular surgical intervention indicated. Patient is cleared from vascular surgery for discharge. He will follow-up with wound care clinic. The impression and plan of care has been dictated as directed. Dr. Ojeda I performed a history and examination of this patient, discussed the same with the dictator. I agree with the dictator's note ,documented as a scribe. Any additional findings or plans will be noted.
[2024-04-05] MEDS: MORPHINE SULFATE 2 MG/ML SYRINGE IVP PRN (17:45)
--- NOTE | 2024-04-05 21:32 | P.PN ---
Subjective Progress Note Date: 04/05/24 Principal diagnosis: Reason for follow-up is left lower extremity abscess and cellulitis Patient is a 64-year-old male with a past medical history significant for hypertension aortic aneurysm hard of hearing patient presenting to the hospital for evaluation of left lower extremity pain swelling and redness, patient diagnosed with cellulitis CT was suggestive of abscess. On today's evaluation that is 04/05/2024, Patient is afebrile patient is currently on room air and denies having any shortness of breath, the patient denies any chest pain or cough, the patient denies any nausea vomiting did not have any abdominal pain and no worsening diarrhea, has been complaining of pain to the left lower extremity with Aquacel silver dressing. Patient white count is 8.15 creatinine 0.5 stool for C. difficile negative cultures has been negative Objective - Vital Signs Vital signs: Vital Signs Temp 99.3 F 04/05/24 13:02 Pulse 74 04/05/24 13:02 Resp 17 04/05/24 13:02 BP 160/88 04/05/24 13:02 Pulse Ox 98 04/05/24 13:02 FiO2 Intake & Output 04/04/24 04/05/24 04/05/24 18:59 06:59 18:59 Intake Total 360 1044 Output Total 600 Balance 360 444 Intake: Oral 360 1044 Output: Urine 600 Other: Voiding Method Toilet Urinal Urinal # Bowel Movements 1 - Exam Elderly male up in the chair in no distress No tachypnea or accessory muscle respiration use Unlabored breathing Left leg wound is currently dressed no drainage - Labs CBC & Chem 7: 04/04/24 04:59 04/04/24 04:59 Labs: Microbiology - Last 24 Hours (Table) 03/30/24 15:45 Blood Culture - Final Blood Assessment and Plan (1) Abscess of left leg Current Visit: Yes Status: Acute Code(s): L02.416 - CUTANEOUS ABSCESS OF LEFT LOWER LIMB SNOMED Code(s): 995867490 (2) Failure of outpatient treatment Current Visit: Yes Status: Acute Code(s): Z78.9 - OTHER SPECIFIED HEALTH STATUS SNOMED Code(s): 404008867 (3) Left leg cellulitis Current Visit: Yes Status: Acute Code(s): L03.116 - CELLULITIS OF LEFT LOWER LIMB SNOMED Code(s): 52291603467437917 (4) Diarrhea Current Visit: Yes Status: Acute Code(s): R19.7 - DIARRHEA, UNSPECIFIED SNOMED Code(s): 80113037 Plan: 1patient presented to hospital with left lower extremity pain swelling redness that has been going on for 2 weeks failing outpatient treatment he did have an area of fluctuation possibly concerning for an abscess and likely related to MRSA gram-negative infection less likely but not entirely excluded 2-patient CT of the leg suggestive of fluid collection vascular surgery has been consulted and the patient is status post I&D however there is no significant purulence as reported by the surgeon culture have been obtained which are negative so far 3-patient stool for C. difficile is negative continue with the Questran for symptomatic relief on Rocephin finishing therapy with the Ceftin Dictation was produced using [employer] dictation software. please excuse any grammatical, word or spelling errors. Time with Patient: Less than 30
--- NOTE | 2024-04-06 05:38 | PN ---
PROGRESS NOTE SUBJECTIVE: He remains on Norvasc for hypertension, Lipitor for cholesterol. Ceftriaxone was started for leg cellulitis. He has a bump on the left leg for drainage, morphine, started Dilaudid for pain control, cholestyramine for diarrhea, Rocephin for antibiotics. Pain control has been bad. Try to get pain control prior to going home. OBJECTIVE: CARDIOVASCULAR: S1, S2. LUNGS: Transmitted upper sounds. GI: Soft. HEMATOLOGY: Negative Homans. PSYCH: Fair mood and affect. EXTREMITIES: Redness in the left leg has improved. VITAL SIGNS: Blood pressure is 160s to 180s over 80s to 90s, temp 98 to 99, pulse 70s to 80s, respiratory rate [address] Gonzalez recommended antibiotics. Nonhealing ulceration to the left lateral leg. I and D by Dr. Conley. Ulcerations. There have been numerous blood clots per them. 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 Prognosis guarded. Continue current treatment. MMODL / IJN: [id number] /
[2024-04-06] MEDS: IPRATROPIUM-ALBUTEROL 3 ML NEB INHALATION SCH (09:14)
--- NOTE | 2024-04-06 12:55 | P.PN ---
Subjective Progress Note Date: 04/06/24 Principal diagnosis: Left lower extremity infection Patient seen and examined today as a follow-up. Nursing called and stated that patient was having more pain in the left lower extremity after wound VAC placement as well as some increase swelling. He has been afebrile. He remains on his antibiotics. Currently getting a breathing treatment. Objective - Vital Signs Vital signs: Vital Signs Temp 97.8 F 04/06/24 08:35 Pulse 76 04/06/24 09:26 Resp 16 04/06/24 08:35 BP 148/79 04/06/24 08:35 Pulse Ox 98 04/06/24 08:35 FiO2 Intake & Output 04/05/24 04/06/24 04/06/24 18:59 06:59 18:59 Intake Total 1080 590 Output Total 860 1300 Balance 220 -710 Intake: Oral 1080 590 Output: Urine 860 1300 Other: Voiding Method Urinal Urinal # Voids 1 # Bowel Movements 1 - Exam General appearance: The patient is alert, oriented, appears in no acute distress. HET: Head is normocephalic and atraumatic. Neck: Supple. Abdomen: Soft, nondistended. Extremities: Left lower extremity surgical wound with wound VAC in place with good seal. No surrounding erythema. Minimal swelling. Neurological: No focal deficits. - Labs CBC & Chem 7: 04/04/24 04:59 04/04/24 04:59 Labs: Microbiology - Last 24 Hours (Table) 04/01/24 14:35 Anaerobic Culture - Final Leg - Left Assessment and Plan Assessment: 1. Left lower extremity fluid collection status post incision and drainage 2. Cellulitis 3. History of coronary artery disease status post heart valve replacement and CABG 4. Nicotine dependence 5. Hypertension Plan: 1. Diet as tolerated 2. Local wound care with wound VAC as ordered. 3. Pain medications/management per primary medical team and patient's pain specialist Thank you for this consultation, no further vascular surgical intervention indicated. Patient is cleared from vascular surgery for discharge. He will follow-up with wound care clinic. We will sign off at this time. The impression and plan of care has been dictated as directed. Dr. Ojeda I performed a history and examination of this patient, discussed the same with the dictator. I agree with the dictator's note ,documented as a scribe. Any additional findings or plans will be noted.
--- NOTE | 2024-04-06 15:45 | P.PN ---
Subjective Progress Note Date: 04/06/24 Principal diagnosis: Reason for follow-up is left lower extremity abscess and cellulitis Patient is a 64-year-old male with a past medical history significant for hypertension aortic aneurysm hard of hearing patient presenting to the hospital for evaluation of left lower extremity pain swelling and redness, patient diagnosed with cellulitis CT was suggestive of abscess. On today's evaluation that is 04/06/2024, patient has been afebrile, patient is breathing comfortably and is currently on room air, patient denies having any significant cough no chest pain, patient denies nausea vomiting did have resolution of his diarrhea no abdominal pain pain to lower extremity has slightly decreased in intensity. White count is 8.15, creatinine 0.5 culture has been negative so far Objective - Vital Signs Vital signs: Vital Signs Temp 98.6 F 04/06/24 13:41 Pulse 87 04/06/24 13:41 Resp 19 04/06/24 13:41 BP 151/88 04/06/24 13:41 Pulse Ox 96 04/06/24 13:41 FiO2 Intake & Output 04/05/24 04/06/24 04/06/24 18:59 06:59 18:59 Intake Total 1080 590 Output Total 860 1300 Balance 220 -710 Intake: Oral 1080 590 Output: Urine 860 1300 Other: Voiding Method Urinal Urinal # Voids 1 # Bowel Movements 1 - Exam Elderly male up in the chair in no distress No tachypnea or accessory muscle respiration use Unlabored breathing Left leg wound is currently dressed no drainage - Labs CBC & Chem 7: 04/04/24 04:59 04/04/24 04:59 Labs: Microbiology - Last 24 Hours (Table) 04/01/24 14:35 Anaerobic Culture - Final Leg - Left Assessment and Plan (1) Abscess of left leg Current Visit: Yes Status: Acute Code(s): L02.416 - CUTANEOUS ABSCESS OF LEFT LOWER LIMB SNOMED Code(s): 345897464 (2) Failure of outpatient treatment Current Visit: Yes Status: Acute Code(s): Z78.9 - OTHER SPECIFIED HEALTH STATUS SNOMED Code(s): 917164246 (3) Left leg cellulitis Current Visit: Yes Status: Acute Code(s): L03.116 - CELLULITIS OF LEFT LOWER LIMB SNOMED Code(s): 08101735891687255 (4) Diarrhea Current Visit: Yes Status: Acute Code(s): R19.7 - DIARRHEA, UNSPECIFIED SNOMED Code(s): 07538886 Plan: 1patient presented to hospital with left lower extremity pain swelling redness that has been going on for 2 weeks failing outpatient treatment he did have an area of fluctuation possibly concerning for an abscess and likely related to MRSA gram-negative infection less likely but not entirely excluded 2-patient CT of the leg suggestive of fluid collection vascular surgery has been consulted and the patient is status post I&D however there is no significant purulence as reported by the surgeon culture have been obtained which are negative so far 3-patient stool for C. difficile is negative patient did have improvement in diarrhea continue Questran as needed he is on Rocephin consider short course of oral Ceftin on discharge Dictation was produced using [employer] dictation software. please excuse any grammatical, word or spelling errors. Time with Patient: Less than 30
[2024-04-06] MEDS: ZOLPIDEM 5 MG TAB PO SCH (20:59)
[2024-04-06] MEDS: HYDROmorphone 1 MG/ML 1 ML SYRINGE IVP PRN (20:59)
[2024-04-07] MEDS: CEFDINIR 300 MG CAP PO SCH (12:01)
--- NOTE | 2024-04-07 12:44 | PN ---
PROGRESS NOTE SUBJECTIVE: A 64-year-old white male. Continues on current medications including Rocephin, DuoNeb, Norvasc, aspirin, Lipitor, Wellbutrin SR, Questran, Neurontin, , Phenergan, Habitrol, Protonix, Ambien. OBJECTIVE: CARDIOVASCULAR: S1, S2. PSYCH: He is crying and anxious. He says he wants to go home on no matter what. He wants to go home with wound VAC tomorrow. Morphine is not helping his pain at all. He is depressed. He wants to go back on Dilaudid overnight and be discharged home in the morning. He is on wound care and possibly a wound VAC will be given to him tomorrow on discharge and we will discharge him home. We will wait and try to get final antibiotics for him to see what the cultures grew. So far, there are no organisms seen on the cultures. Possibly we will just sent him home on some antibiotics and follow up as an outpatient. White count is 8.15, creatinine 0.5, failed outpatient treatment. Abscess of the left leg, status post debridement with wound VAC. Negative for C diff. Questran as needed. We will order Ceftin on discharge. Possibly send him home in the morning. Prognosis guarded. MMODL / IJN: [id number] /
[2024-04-07 13:30] VITALS: BP 142/87; PULSE 75; RESP 18; TEMP 97.4
--- NOTE | 2024-04-08 01:20 | DS ---
DISCHARGE SUMMARY DISCHARGE MEDICATIONS: 1. DuoNeb q.i.d. 2. Norvasc 5 daily. 3. Aspirin 81 daily. 4. Lipitor 80 daily. 5. Wellbutrin XR 150 b.i.d. 6. Omnicef 300 b.i.d. 7. Questran 4 mg b.i.d. p.r.n. diarrhea. 8. Celexa 40 mg daily. 9. Neurontin 600 t.i.d. 10.Celexa 20 daily. 11.Habitrol patch 14 mg daily. 12.Protonix 40 b.i.d. 13.Ambien 5 mg daily. The patient will go home with wound VAC and Omnicef for 2 weeks. Continue current medications, please see list. Follow up as tolerated. Continue current treatments. ADENIKE / LESLYE: [id number] /
--- NOTE | 2024-04-08 13:43 | P.PN ---
Subjective Progress Note Date: 04/07/24 Principal diagnosis: Reason for follow-up is left lower extremity abscess and cellulitis Patient is a 64-year-old male with a past medical history significant for hypertension aortic aneurysm hard of hearing patient presenting to the hospital for evaluation of left lower extremity pain swelling and redness, patient diagnosed with cellulitis CT was suggestive of abscess. On today's evaluation that is 04/07/2024, Patient is afebrile this morning patient denies having any chest pain shortness of breath or cough, the patient is currently on room air, patient denies any abdominal pain no diarrhea no nausea no vomiting, pain to the left leg has decreased intensity. No new lab has been obtained today culture remains to be negative Objective - Vital Signs Vital signs: Vital Signs Temp 98.1 F 04/07/24 07:47 Pulse 71 04/07/24 07:47 Resp 17 04/07/24 07:47 BP 134/86 04/07/24 07:47 Pulse Ox 98 04/07/24 07:47 FiO2 Intake & Output 04/06/24 04/07/24 04/07/24 18:59 06:59 18:59 Intake Total 1080 20 Output Total 840 300 Balance 240 -280 Weight 53.524 kg Intake: IV 20 Invasive Line 3 20 Oral 1080 Output: Urine 840 300 Other: Voiding Method Urinal # Voids 1 # Bowel Movements 1 - Exam Elderly male up in the chair in no distress No tachypnea or accessory muscle respiration use Unlabored breathing Left leg wound is currently dressed no drainage - Labs CBC & Chem 7: 04/04/24 04:59 04/04/24 04:59 Assessment and Plan (1) Abscess of left leg Status: Acute Code(s): L02.416 - CUTANEOUS ABSCESS OF LEFT LOWER LIMB SNOMED Code(s): 131630972 (2) Failure of outpatient treatment Status: Acute Code(s): Z78.9 - OTHER SPECIFIED HEALTH STATUS SNOMED Code(s): 477778216 (3) Left leg cellulitis Status: Acute Code(s): L03.116 - CELLULITIS OF LEFT LOWER LIMB SNOMED Code(s): 32173358836796690 (4) Diarrhea Status: Acute Code(s): R19.7 - DIARRHEA, UNSPECIFIED SNOMED Code(s): 37657350 Plan: 1patient presented to hospital with left lower extremity pain swelling redness that has been going on for 2 weeks failing outpatient treatment he did have an area of fluctuation possibly concerning for an abscess and likely related to MRSA gram-negative infection less likely but not entirely excluded 2-patient CT of the leg suggestive of fluid collection vascular surgery has been consulted and the patient is status post I&D however there is no significant purulence as reported by the surgeon culture have been obtained which are negative so far 3-patient stool for C. difficile is negative patient did have improvement in diarrhea, patient continue Questran as needed and short course of oral Ceftin on discharge, close outpatient follow-up Dictation was produced using [employer] dictation software. please excuse any grammatical, word or spelling errors. Time with Patient: Less than 30
== END 2024-04-07 16:20 | disposition home health service (06) | DRG 580 ==
LOC: EC 14:18 → 4SSUR 17:15 → 5NMEDONC 17:52
PROVIDERS: ADMIT Family Medicine; ATTEND Family Medicine
PROC: 0K9T0ZZ Drainage of Left Lower Leg Muscle, Open Approach (ICD-10-PCS; principal; 2024-04-01 14:00)
DX: L02.416 Cutaneous abscess of left lower limb (principal); L97.822 Non-pressure chronic ulcer of other part of left lower leg with fat layer exposed; I71.9 Aortic aneurysm of unspecified site, without rupture; F32.A Depression, unspecified; I10 Essential (primary) hypertension; Z95.3 Presence of xenogenic heart valve; L03.116 Cellulitis of left lower limb; I25.10 Atherosclerotic heart disease of native coronary artery without angina pectoris; F17.210 Nicotine dependence, cigarettes, uncomplicated; H91.90 Unspecified hearing loss, unspecified ear; R19.7 Diarrhea, unspecified; Z79.891 Long term (current) use of opiate analgesic; Z79.82 Long term (current) use of aspirin; Z79.899 Other long term (current) drug therapy; Z95.1 Presence of aortocoronary bypass graft
CPT/HCPCS: 36415; 80048; 80053; 80202; 82565; 83605; 85025; 86140; 87040; 87070; 87075; 87205; 87324; 93005; 94640; 94760; 96365; 96366; 96367; 99285